=== PATIENT | male | born 1950 | race Caucasian/White ===

== ENCOUNTER 2019-04-04 21:58 | Inpatient (IN) | payer MEDICARE, BC ==
[~2019-04-04] VITALS: Ht 177.8 cm; Wt 135.9 kg
[~2019-04-04 21:58] MED LIST: ESCITALOPRAM; LORTAB 5/500 501 TAB PO; NO HOME MEDICATIONS
[2019-04-04 22:38] LABS: BASO % 0.3 % (0.0-2.0); EOS # 0.1 (0.0-0.7); EOS % 0.5 % (0-4.0); GRAN % 80.9 % (42.2-75.2); HEMATOCRIT 43.4 % (42.0-52.0); HEMOGLOBIN 14.4 g/dl (13.5-18.0); LYMPH # 1.5 (1.2-3.4); LYMPH % 10.2 % (20.0-51.0); MEAN CELL VOLUME 88 fl (80.0-100.0); MEAN CORPUSCULAR HEMOGLOBIN 29 pg (27.0-31.0); MEAN CORPUSCULAR HGB CONC 33 g/dl (33.0-37.0); MEAN PLATELET VOLUME 9.5 fl (7.4-10.4); MONO # 1.1 (0.1-0.6); MONO % 7.3 % (1.7-9.3); PLATELET COUNT 231 K/mm3 (130-400); RED BLOOD COUNT 4.91 M/mm3 (4.20-5.60); REDCELL DISTRIBUTION WIDTH-CV 14.1 % (11.5-14.5)
[2019-04-04 22:49] LABS: ALBUMIN 3.8 gm/dL (3.5-5.0); BILIRUBIN,TOTAL 0.9 mg/dL (0.0-1.0); C-REACTIVE PROTEIN 8.5 mg/dL (0.0-0.9); CALCIUM 9.2 mg/dL (8.4-10.2); CREATININE, serum 1.72 (0.66-1.25); MAGNESIUM 1.9 mg/dL (1.6-2.3); PHOSPHOROUS 4.1 mg/dL (2.5-4.5); POTASSIUM 3.9 mmol/L (3.4-5.0); TOTAL PROTEIN 6.8 gm/dL (6.4-8.2)
[2019-04-04 22:59] LABS: TROPONIN-I 0.202 ng/mL (0.000-0.035)
--- NOTE | 2019-04-04 23:30 | NUR ---
Report received from Jamie LOPEZ in ED.
[2019-04-04] MEDS ORDERED: PRINIVIL10 MG PO (23:37)
[2019-04-04] MEDS ORDERED: ZYLOPRIM 100MG100 MG PO (23:37)
--- NOTE | 2019-04-04 23:45 | NUR ---
Pt arrived via stretcher from ED to ICU07. Pts life partner in waiting room at this time. Pt is pleasant and cooperative at this time. Agreed to transfer with X2 staff assist to ICU bed from stretcher with steady gait. Pt refused to take off shorts under hospital gown. Assessment completed at this time. Life partner name is Gaby, 4 digit passcode provided.
[2019-04-05] VITALS (584 sets, daily range): BP systolic 84–139; BP diastolic 56–95; PULSE 82–112; TEMP 97.6–99.4; O2SAT 74–100
--- NOTE | 2019-04-05 | NUR ---
Significant other reported to this nurse that prior to blood administration earlier in the day the recorded BP was 118/74. Gaby stated that the ER provider had requested this information. A new insurance card was also reported, and family member was directed to the ED admissions desk so the proper placement of information could be obtained.
[2019-04-05] MEDS ORDERED: ALEVE 220MG220 MG PO (00:59)
[2019-04-05 03:12] LABS: PARTIAL THROMBOPLASTIN TIME 26.7 SECONDS (26.0-37.0)
[2019-04-05 05:32] LABS: CALCIUM 8.9 mg/dL (8.4-10.2); CHOLESTEROL RISK RATIO 3.1; CREATININE, serum 1.78 (0.66-1.25); POTASSIUM 4.4 mmol/L (3.4-5.0)
[2019-04-05 05:49] LABS: TROPONIN-I 6 HR POST INITIAL 1.12 ng/mL (0.000-0.034)
--- NOTE | 2019-04-05 07:30 | NUR ---
Bedside report provided to Gail LOPEZ. Pt resting in bed at this time and significant other sitting at bedside. Both were active in report and timeline of occurances prior to admission as well as asking questions about morning lab results.
--- NOTE | 2019-04-05 07:42 | NUR ---
Report received from Dodie LOPEZ and care resumed.
--- NOTE | 2019-04-05 08:30 | NUR ---
Dr Munoz in to see pt.
--- NOTE | 2019-04-05 09:35 | NUR ---
Dr Vidal in to see pt.
--- NOTE | 2019-04-05 10:04 | NUR ---
Initial visit; Patient thanked Manager Pipeline for looking in on him and wishing him well and offering him God's blessings.
[2019-04-05 11:27] LABS: COLLECTION METHOD CLEAN CATCH
[2019-04-05 11:40] LABS: MUCOUS Present /lpf; PH 5 (5-8); SQUAMOUS EPITHELIAL 0-2 /hpf; URINE APPEARANCE Hazy; URINE BACTERIA Rare /hpf; URINE BILIRUBIN Negative (NEGATIVE); URINE BLOOD Negative (NEGATIVE); URINE COLOR Amber; URINE GLUCOSE Negative (NEGATIVE); URINE KETONE Trace (NEGATIVE); URINE LEUKOCYTE ESTERASE Negative (NEGATIVE); URINE NITRATE Negative (NEGATIVE); URINE PROTEIN(semi-quant) 1+ (NEGATIVE); URINE RBC 0-2 /hpf; URINE WBC 0-2 /hpf
--- NOTE | 2019-04-05 12:00 | NUR ---
Pt to sugar laboratory assistant at this time.
--- NOTE | 2019-04-05 12:12 | NUR ---
SEE MERGE REPORT FOR MEDICATION ADMINISTRATION TIMES WELL INTRA/POST SEDATION ASSESSMENTS.
--- NOTE | 2019-04-05 13:15 | NUR ---
Right groin dressing in place, gauze/tegaderm/, C/D/I.
--- NOTE | 2019-04-05 13:30 | NUR ---
Right groin dressing in place, gauze with tegaderm, C/D/I
--- NOTE | 2019-04-05 13:36 | NUR ---
GEORGI Cedillo with hospitalist called regarding cath results and updated plan of care. Will plan to transfer pt to medical floor.
--- NOTE | 2019-04-05 13:48 | NUR ---
Dressing in place to right groin, gauze and tegaderm, dressing C/D/I.
--- NOTE | 2019-04-05 14:00 | NUR ---
Right groin dressing in place, gauze and tegaderm. Dressing C/D/I/
--- NOTE | 2019-04-05 14:28 | NUR ---
SW attended clinical rounding and met with patient to discuss discharge planning. 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 His pcp is Dr Short and he obtains his medications from [facility]. SW will continue to follow to assist in any discharge needs however none are anticipated.
--- NOTE | 2019-04-05 14:30 | NUR ---
Gauze/tegaderm dressing to right groin site C/D/I.
--- NOTE | 2019-04-05 15:00 | NUR ---
Gauze/tegaderm dressing to right groin C/D/I.
--- NOTE | 2019-04-05 15:30 | NUR ---
Dressing to right groin C/D/I
--- NOTE | 2019-04-05 16:00 | NUR ---
Dressing to right groin C/D/I
[2019-04-05 16:02] LABS: CREATININE, serum 1.87 (0.66-1.25)
[2019-04-05 16:14] LABS: FRACTIONAL EXCRETION OF NA+ 0.58 %
[2019-04-05 16:56] LABS: CREATININE, serum 1.87 (0.66-1.25); POTASSIUM 4.5 mmol/L (3.4-5.0)
--- NOTE | 2019-04-05 17:00 | NUR ---
Dressing to right groin c/d/i.
--- NOTE | 2019-04-05 17:48 | NUR ---
Report called to Jaelyn LOPEZ. Pt to transfer to 319 per wheelchair with tele.
--- NOTE | 2019-04-05 18:00 | NUR ---
Pt arrives to medical unit rm 319 from ICU via WC accompanied by JOHN Reynolds. Pt reports pain in right knee still pretty high, 8 out of 10 on pain scale. IVF's infusing per orders through right hand site without s/s of complications. Right groin incision site with dressing CDI. Bandaid over right wrist site. Urinal and Ice water provided to pt.
--- NOTE | 2019-04-05 18:23 | NUR ---
Pt taken to room 319 by wheelchair. Bedside update given to Jaelyn LOPEZ.
--- NOTE | 2019-04-05 19:45 | NUR ---
pt resting in bed A+OX4. reports no pain. radial site DCI. right femoral dressing DCI. reports no dizziness. tele on. lungs clear x4. bowel sounds audible x4. tele on- NSR shown. neuro checks unchanged and insignificant. New IV placed to the right forearm- flushes well,no redness, no swelling. right hand IV dc'd- catheter tip intact. no needs at this time. call light in reach
[2019-04-06] VITALS (7 sets, daily range): BP systolic 112–152; BP diastolic 60–85; PULSE 81–94; TEMP 97.7–99.5
--- NOTE | 2019-04-06 05:24 | NUR ---
pt had an uneventful night. reports right knee pain- prn pain meds given. radial site DCI. right femoral site DCI. IV started to the right forearm- flushes well, no redness, no swelling. no needs at this time. call light in reach
--- NOTE | 2019-04-06 06:35 | NUR ---
resting in bed, bedside shift report received from JOHN Ribera
--- NOTE | 2019-04-06 07:25 | NUR ---
report given to JOHN Trujillo. pt reports no needs at this time.
[2019-04-06 08:16] LABS: HEMATOCRIT 38.7 % (42.0-52.0); HEMOGLOBIN 12.9 g/dl (13.5-18.0); MEAN CELL VOLUME 89 fl (80.0-100.0); MEAN CORPUSCULAR HEMOGLOBIN 30 pg (27.0-31.0); MEAN CORPUSCULAR HGB CONC 33 g/dl (33.0-37.0); PLATELET COUNT 221 K/mm3 (130-400); RED BLOOD COUNT 4.37 M/mm3 (4.20-5.60)
[2019-04-06 08:20] LABS: CALCIUM 8.7 mg/dL (8.4-10.2); CREATININE, serum 1.74 (0.66-1.25); POTASSIUM 4.3 mmol/L (3.4-5.0)
--- NOTE | 2019-04-06 08:25 | NUR ---
sitting up on side of bed, denies needs at this time, anxious to go home
[2019-04-06 08:48] LABS: BAND 2 % (0-10); LYMPHOCYTE 13 % (20.0-51.0); NEUTROPHILS 75 % (42.0-75.2); PLATELET ESTIMATE NORMAL (NORMAL)
--- NOTE | 2019-04-06 09:12 | NUR ---
resting in bed at this time, denies needs
--- NOTE | 2019-04-06 09:23 | NUR ---
physical therapy in to work with patient, in to visit and they are asking about the results of the the test that have been completed, explained that the Dr will make rounds hopefully in the next hour and they will review that with them
--- NOTE | 2019-04-06 09:43 | NUR ---
ambulating in flores with physical therapy, c/o pain to knee and 2 therapists assisting
--- NOTE | 2019-04-06 10:06 | NUR ---
Dr Suazo and care team in to see patient
--- NOTE | 2019-04-06 10:20 | NUR ---
Dr Madden notified of consult
--- NOTE | 2019-04-06 10:27 | NUR ---
remains up in chair, full assessment completed, see interventions for further info
--- NOTE | 2019-04-06 11:23 | NUR ---
SW attended clinical rounds to discuss discharge plan. Patient will require a front wheeled walker for discharge. Patient was presented DME [employer] options. Patient signed choice form for [facility]. SW faxed FWW order to [facility]. No additional needs at this time.
--- NOTE | 2019-04-06 11:39 | NUR ---
resting in chair denies needs
[2019-04-06 13:08] LABS: IRON,SERUM 14 ug/dL (35-150)
--- NOTE | 2019-04-06 13:10 | NUR ---
sitting up on bench seat, visiting with a friend
[2019-04-06 13:17] LABS: TOTAL IRON BINDING CAPACITY 297 ug/dL (261-462)
--- NOTE | 2019-04-06 13:30 | NUR ---
to radiology per WC for CT scan
[2019-04-06 13:45] LABS: FERRITIN 106 ng/mL (18-464)
--- NOTE | 2019-04-06 15:08 | NUR ---
Follow-up visit; Patient thanked for stopping by. He stated he is going to undergo another test or so this afternoon and will see what they find out. will continue to look in on Mikhail.
--- NOTE | 2019-04-06 15:18 | NUR ---
remains up in recliner
--- NOTE | 2019-04-06 16:00 | NUR ---
resting in chair, informed him that the nurse practitioner has called and said he has a kidney stone and that Dr Brown has been consulted
--- NOTE | 2019-04-06 17:02 | NUR ---
bedside shift report given to JOHN Land
[2019-04-06 17:26] LABS: URINE PROTEIN:CREAT RATIO 0.06 (0.00-0.14)
--- NOTE | 2019-04-06 19:45 | NUR ---
PT RESTING IN BED A+OX4. REPORTS MINIMAL PAIN. NORCO RELIEVED FLANK PAIN. NPO AT MIDNIGHT. VSS. RIGHT IV FLUSHES WELL, NO REDNESS, NO SWELLING. NO SOA. VSS. ON ROOM AIR. LUNGS CLEAR. BOWEL SOUNDS HEARD THROUGHOUT. TELE ON. NO NEEDS AT THIS TIME. CALL LIGHT IN REACH
[2019-04-07] VITALS (310 sets, daily range): BP systolic 119–140; BP diastolic 64–90; PULSE 72–159; TEMP 97.5–99.3; O2SAT 77–100
--- NOTE | 2019-04-07 07:29 | NUR ---
PT HAD AN UNEVENTFUL NIGHT. REPORTED SOME FLANK PAIN BUT DENIES PAIN MEDS. IV FLUSHES WELL, NO REDNESS, NO SWELLING. CONSENT PRINTED AND ON CHART. LUNGS CLEAR X4. BOWEL SOUNDS AUDIBLE. HEART RRR. NO NEEDS AT THIS TIME. REPORT GIVEN TO JOHN ROBERTSON
[2019-04-07 08:06] LABS: BASO % 0.5 % (0.0-2.0); EOS # 0.1 (0.0-0.7); GRAN # 6.5 (1.4-6.5); HEMATOCRIT 38.9 % (42.0-52.0); LYMPH # 1.2 (1.2-3.4); LYMPH % 13.5 % (20.0-51.0); MEAN CELL VOLUME 88 fl (80.0-100.0); MEAN CORPUSCULAR HEMOGLOBIN 29 pg (27.0-31.0); MEAN CORPUSCULAR HGB CONC 33 g/dl (33.0-37.0); MEAN PLATELET VOLUME 9.9 fl (7.4-10.4); MONO % 11.4 % (1.7-9.3); PLATELET COUNT 222 K/mm3 (130-400); RED BLOOD COUNT 4.42 M/mm3 (4.20-5.60)
[2019-04-07 08:25] LABS: CALCIUM 8.8 mg/dL (8.4-10.2); CREATININE, serum 1.56 (0.66-1.25); POTASSIUM 4.2 mmol/L (3.4-5.0)
--- NOTE | 2019-04-07 08:31 | NUR ---
Assessment completed, alert/oriented, vital signs stable, left sided flank pain present but manageable/ denies needs for intervention, patient scheduled for surgery with to removed left kindey stone and place ureteral stent, consent signed and sscheudled for around 0900, he has been NPO, nephrology following for RAPHAEL/ CKD, heart RRR, lungs CTA, patient denies other needs at this time
--- NOTE | 2019-04-07 10:06 | NUR ---
patient is going to OR for ureterosocpy/ stone removal
--- NOTE | 2019-04-07 11:13 | NUR ---
Patient was presented IM and provided a copy. [facility] will deliver the walker today for discharge. Patient will likely discharge later today.
--- NOTE | 2019-04-07 12:48 | NUR ---
Patient arrived back to room 319 from PACU at this time, he is drowsy but oriented, vital signs stable, pain conrolled at this time
--- NOTE | 2019-04-07 14:20 | NUR ---
patient heart rate tachy / irregular, obtained EKG and showed A.fib RVR, hospitalist notified Cardiology who wants him on an Amiodraone gtt, I have called household refrigerator mechanic for ICU bed
--- NOTE | 2019-04-07 14:50 | NUR ---
PATIENT BROUGHT TO ICU UNIT AT 1450 BY JOHN ROBERTSON. ASSESSMENT OF PATIENT COMPLETED, MED-REC COMPLETE, VITALS TAKEN: TEMPERATURE 97.8 ORALLY, BP 156/73 LEFT ARM SUPINE, HR 159, RESPIRATIONS 14, SpO2 100% ON 2L OF O2 VIA NC. PATIENT DENIES ANY SYMPTOMS R/T A-FIB C RVR. WILL CONTINUE TO MONITOR.
--- NOTE | 2019-04-07 15:00 | NUR ---
PATIENT ASSESSED, VITALS TAKEN. HEART RATE NOTED TO BE A-FIB WITH RVR, HR 150'S. PATIENT DENIES ANY SYMPTOMS RELATED TO A-FIB. PATIENT QUESTIONS AND CONCERNS ANSWERED AND ADDRESSED. ORIENTED TO ICU ROOM AND ENCOURGAGED TO ASK QUESTIONS.
--- NOTE | 2019-04-07 15:05 | NUR ---
Patient being transferred to ICU for A.fib/RVR to initiate Amiodarone gtt, I have given report to recieving nurse Rosales,RN / Otoniel,RN, I have discussed plan of care with patient and he verbalized understanding, I transferred him to room ICU#8 by wheelchair
--- NOTE | 2019-04-07 15:37 | NUR ---
AMIODARONE DRIP STARTED PER ORDERS FROM DR. DIAZ. BOLUS ADMINISTERED OVER 1 HOUR. DRIP TO REMAIN AT 1MG/MIN WITH NO TITRATION PER ORDERS FROM DR. DIAZ
[2019-04-07 15:41] LABS: CALCIUM 8.8 mg/dL (8.4-10.2); CREATININE, serum 1.53 (0.66-1.25); POTASSIUM 4.5 mmol/L (3.4-5.0)
[2019-04-07 16:11] LABS: TSH w REFLEX 1.18 uIU/mL (0.465-4.680)
--- NOTE | 2019-04-07 17:01 | NUR ---
Pt converted to sinus rhythm in 70s. Dr. Renee notified of conversion. After EKG confirmation of rhythm change, Amiodarone gtt can be stopped.
--- NOTE | 2019-04-07 17:30 | NUR ---
PATIENT CARDIOVERTED TO NORMAL SINUS RHYTHM, CONFIRMED WITH EKG. ORDERS FROM DR. DIAZ TO DISCONTINUE AMIODERONE.
--- NOTE | 2019-04-07 19:10 | NUR ---
Bedside report received from Antonina. Pt resting in bed at this time interacting in report. Dinner tray is in front of pt at this time.
[2019-04-08] VITALS (339 sets, daily range): BP systolic 133–164; BP diastolic 69–89; PULSE 59–78; TEMP 97.4–98.1; O2SAT 68–100
[2019-04-08 06:14] LABS: EOS % 0.1 % (0-4.0); GRAN # 9.7 (1.4-6.5); GRAN % 86.1 % (42.2-75.2); HEMOGLOBIN 12.2 g/dl (13.5-18.0); LYMPH # 0.7 (1.2-3.4); LYMPH % 5.8 % (20.0-51.0); MEAN CELL VOLUME 88 fl (80.0-100.0); MEAN CORPUSCULAR HEMOGLOBIN 30 pg (27.0-31.0); MEAN CORPUSCULAR HGB CONC 34 g/dl (33.0-37.0); MEAN PLATELET VOLUME 9.6 fl (7.4-10.4); MONO # 0.9 (0.1-0.6); MONO % 7.6 % (1.7-9.3); PLATELET COUNT 224 K/mm3 (130-400); RED BLOOD COUNT 4.12 M/mm3 (4.20-5.60); REDCELL DISTRIBUTION WIDTH-CV 13.9 % (11.5-14.5)
[2019-04-08 06:15] LABS: HEMATOCRIT 36.4 % (42.0-52.0)
[2019-04-08 06:24] LABS: CALCIUM 8.7 mg/dL (8.4-10.2); CREATININE, serum 1.77 (0.66-1.25); POTASSIUM 4.6 mmol/L (3.4-5.0)
--- NOTE | 2019-04-08 07:25 | NUR ---
Report provided to Hira LOPEZ. Pt resting in bed at this time.
--- NOTE | 2019-04-08 08:00 | NUR ---
PATIENT ASSESSED. QUESTIONS AND CONCERNS ADDRESSED. WILL CONTINUE TO MONITOR.
[2019-04-08] MEDS ORDERED: ASPIRIN E.C. 8181 MG PO ×2 (15:04)
[2019-04-08] MEDS ORDERED: TOPROL XL 25MG25 MG PO ×2 (15:04)
--- NOTE | 2019-04-08 16:41 | NUR ---
PATIENT DISCHARGED FROM UNIT AT 1641. REVIEWED DISCHARGE INSTRUCTIONS, PAPERWORK SIGNED, QUESTIONS AND CONCERNS ADDRESSED, FOLLOW UP CARE REVIEWED. LEFT UNIT VIA WHEELCHAIR ESCORTED BY THIS RN.
== END 2019-04-08 16:41 | disposition home or self-care (01) | DRG 659 ==
LOC: COL.ER 21:58 → ICU 23:12 → MEDICAL 23:12 → ICU 04-07 14:27
PROVIDERS: Emergency Medicine; Internal Medicine Cardiovascular Disease; Nurse Practitioner; Nurse Practitioner Family; Physician Assistant; Urology; ADMIT Hospitalist
PROC: 4A023N8 Measurement of Cardiac Sampling and Pressure, Bilateral, Percutaneous Approach (ICD-10-PCS; principal; 2019-04-05)
PROC: B2111ZZ Fluoroscopy of Multiple Coronary Arteries using Low Osmolar Contrast (ICD-10-PCS; 2019-04-05)
PROC: B2151ZZ Fluoroscopy of Left Heart using Low Osmolar Contrast (ICD-10-PCS; 2019-04-05)
PROC: 0T778DZ Dilation of Left Ureter with Intraluminal Device, Via Natural or Artificial Opening Endoscopic (ICD-10-PCS; 2019-04-07 11:30)
PROC: 0TC78ZZ Extirpation of Matter from Left Ureter, Via Natural or Artificial Opening Endoscopic (ICD-10-PCS; 2019-04-07 11:30)
DX: N13.2 Hydronephrosis with renal and ureteral calculous obstruction (principal); I21.4 Non-ST elevation (NSTEMI) myocardial infarction; Z68.41 Body mass index [BMI] 40.0-44.9, adult; R74.8 Abnormal levels of other serum enzymes; E78.5 Hyperlipidemia, unspecified; H81.10 Benign paroxysmal vertigo, unspecified ear; I25.10 Atherosclerotic heart disease of native coronary artery without angina pectoris; I13.10 Hypertensive heart and chronic kidney disease without heart failure, with stage 1 through stage 4 chronic kidney disease, or unspecified chronic kidney disease; E66.9 Obesity, unspecified; N18.3 Chronic kidney disease, stage 3 (moderate); I48.91 Unspecified atrial fibrillation
CPT/HCPCS: OP; 99222-AI; 99233-AI; 99239; C1769; C1894; C2617; J0282; J0690; J1100; J1644; J1885; J2060; J2250; J2370; J2405; J2550; J2704; J3010; J7030; J7060; Q9967

== ENCOUNTER 2020-08-22 07:41 | Inpatient (IN) | payer MEDICARE, BC ==
[~2020-08-22] VITALS: Ht 172.7 cm; Wt 114.6 kg
[~2020-08-22 07:41] MED LIST changes: +ALEVE 220MG220 MG PO; +ASPIRIN E.C. 8181 MG PO; +PRINIVIL10 MG PO; +TOPROL XL 25MG25 MG PO; +ZYLOPRIM 100MG100 MG PO
[2020-08-22 09:24] LABS: HEMOGLOBIN 12.3 g/dl (13.5-18.0); MEAN CELL VOLUME 92 fl (80.0-100.0); MEAN CORPUSCULAR HEMOGLOBIN 31 pg (27.0-31.0); MEAN CORPUSCULAR HGB CONC 34 g/dl (33.0-37.0); MEAN PLATELET VOLUME 9.5 fl (7.4-10.4); PLATELET COUNT 282 K/mm3 (130-400); RED BLOOD COUNT 3.92 M/mm3 (4.20-5.60); REDCELL DISTRIBUTION WIDTH-CV 13.7 % (11.5-14.5)
[2020-08-22 09:30] LABS: ALBUMIN 3.6 gm/dL (3.5-5.0); BILIRUBIN,TOTAL 2.2 mg/dL (0.0-1.0); CALCIUM 8.9 mg/dL (8.4-10.2); CREATININE, serum 0.73 (0.66-1.25); POTASSIUM 3.7 mmol/L (3.4-5.0); TOTAL PROTEIN 6.3 gm/dL (6.4-8.2)
[2020-08-22 09:34] LABS: HEMATOCRIT 36.1 % (42.0-52.0)
[2020-08-22 09:38] LABS: INR 1.4 (0.8-3.0); PROTHROMBIN TIME 15.8 SECONDS (9.7-12.8)
[2020-08-22 09:49] LABS: TROPONIN-I 0.059 ng/mL (0.000-0.035)
[2020-08-22 09:57] LABS: LYMPHOCYTE 9 % (20.0-51.0); NEUTROPHILS 79 % (42.0-75.2); PLATELET ESTIMATE NORMAL (NORMAL)
[2020-08-22 11:51] LABS: COLLECTION METHOD CLEAN CATCH
[2020-08-22 11:59] LABS: PH 7 (5-8); SQUAMOUS EPITHELIAL None Seen /hpf; URINE APPEARANCE Clear; URINE BACTERIA None Seen /hpf; URINE BILIRUBIN Negative (NEGATIVE); URINE BLOOD Negative (NEGATIVE); URINE COLOR Yellow; URINE GLUCOSE Negative (NEGATIVE); URINE KETONE 1+ (NEGATIVE); URINE LEUKOCYTE ESTERASE Negative (NEGATIVE); URINE NITRATE Negative (NEGATIVE); URINE PROTEIN(semi-quant) Negative (NEGATIVE); URINE RBC 0-2 /hpf; URINE UROBILINOGEN >=4.0 mg/dL (NEGATIVE)
[2020-08-22] MEDS ORDERED: NORCO 325 MG-7.1 TAB PO (16:10)
[2020-08-22] MEDS ORDERED: ZYLOPRIM 100MG100 MG PO (16:10)
[2020-08-22] MEDS ORDERED: LASIX 20MG TABL20 MG PO (16:10)
[2020-08-22] MEDS ORDERED: TOPROL XL 50MG50 MG PO (16:11)
[2020-08-22 17:15] VITALS: BP 147/74; PULSE 79; TEMP 98.8
[2020-08-22 17:26] LABS: TROPONIN-I 3 HR POST INITIAL 0.05 ng/mL (0.000-0.034)
[2020-08-22] MEDS ORDERED: SENEXON-S 50-81 EACH PO (17:56)
--- NOTE | 2020-08-22 19:28 | NUR ---
PT BROUGHT TO ROOM 345 BY FUSE CUP EXPANDER FROM ED. THIS NURSE HELPED TRANSFER WITH THE FUSE CUP EXPANDER TO BED. AN EXTENSIVE TWO ASSIST FOR PIVOT TRANSFER. PT WAS ORIENTED TO THE ROOM. MED REC DONE AND ASSESS DONE. ICE THERAPY UTILIZED TO LEFT KNEE. PT DENIES PAIN AT THIS TIME. AWAITING PLACEMENT IN REHAB FACILITY.
[2020-08-22 19:43] VITALS: BP 125/53; PULSE 91; TEMP 98.9
[2020-08-22 20:08] VITALS: BP 125/53; PULSE 91; TEMP 98.9
[2020-08-22 23:44] VITALS: BP 121/51; PULSE 65; TEMP 98
[2020-08-23 03:36] VITALS: BP 124/65; PULSE 67; TEMP 99.3
[2020-08-23 08:11] VITALS: BP 95/64; PULSE 82; TEMP 98.5
--- NOTE | 2020-08-23 08:57 | NUR ---
(late entry 08/22) Sap Administrator consulted to the ED for the patient. The patient had hip surgery 6 weeks ago at the surgical center. In the last 36 hours he fell twice onto his knees. He may need placement or home with home health and extra assistance from aides. BECKY informed the patient's life partner, Maurisio and the patient that it would likely be private pay to go to a facility for post acute rehab. They were agreeable to private pay. PT consulted. BECKY faxed referrals to [facility], [facility], [facility], [facility], [facility], [facility], [facility], [facility], and [facility]. BECKY faxed referral to Gem at [facility]. The patient is being admitted obs status. [facility] is not currently accepting patients. [facility] is currently not accepting patients. [facility] could not accept at this time but will assess the patient again. [facility] has not accepted but does not not have male beds but may have male beds on Thursday 08/23 or Friday 08/24. BECKY collaborated the above information with the ED team and surgical floor Sap Administrator.
[2020-08-23 09:42] VITALS: BP 181/101; PULSE 102
[2020-08-23 09:45] LABS: CALCIUM 8.9 mg/dL (8.4-10.2); CREATININE, serum 0.78 (0.66-1.25); GRAN # 7.4 (1.4-6.5); GRAN % 81.9 % (42.2-75.2); HEMOGLOBIN 11.3 g/dl (13.5-18.0); LYMPH # 0.6 (1.2-3.4); LYMPH % 7.1 % (20.0-51.0); MEAN CELL VOLUME 92 fl (80.0-100.0); MEAN CORPUSCULAR HEMOGLOBIN 30 pg (27.0-31.0); MEAN CORPUSCULAR HGB CONC 33 g/dl (33.0-37.0); MONO % 10.6 % (1.7-9.3); PLATELET COUNT 272 K/mm3 (130-400); RED BLOOD COUNT 3.76 M/mm3 (4.20-5.60); REDCELL DISTRIBUTION WIDTH-CV 13.4 % (11.5-14.5)
[2020-08-23 09:58] LABS: HEMATOCRIT 34.7 % (42.0-52.0)
[2020-08-23 12:11] VITALS: BP 123/57; PULSE 68; TEMP 98.3
--- NOTE | 2020-08-23 13:00 | NUR ---
Hospitaslist have rounded & seen patient. Patient not a candidate for MRI due to recent Hip surgery. Hosptistaist made aware & Ct ordered. Patient not given daily dose of Toprol due to low Bp. Other home meds given. Patient pulled out IV this nurse unsuccessful in restart. cloth mercerizing supervisor notified.
--- NOTE | 2020-08-23 13:03 | NUR ---
Patient sitting up in chair. He tolerated lunch. Aiv to be notifed for IV start, housekeeper child care also unsuccessful. Patient denies the need for pain medication. New linens applied to bed.
--- NOTE | 2020-08-23 14:49 | NUR ---
Cassandra started Iv to Right hand. Patient resting in bed. Social work assisting in discharge plans
[2020-08-23 15:50] VITALS: BP 137/59; PULSE 78; TEMP 98.6
--- NOTE | 2020-08-23 15:57 | NUR ---
Patient up and ambulated the halls. With walker & gaitbelt steady gait. he did well. Patient assisted to wipe down his backside & all skin intact. New yellow goen on, but he wanted to keep all his underclothing on.
--- NOTE | 2020-08-23 17:03 | NUR ---
Motorcycle Riding Instructor contacted Evan at [facility] who advised they do not have male beds available. [facility], [facility], [facility] were unable to accept referral. Andrew at [facility] advised they are still reviewing referral. BECKY spoke with Eugenie at [facility] who advised they were likely able to accept patient and could possibly take today. BECKY contacted patient's life partner, Maurisio to provide update. Muarisio verbalized frustration and stated patient was not going to [facility] and was not going to [facility]. Maurisio stated patient was not going to some, small custodial like [facility], which probably has COVID. Maurisio also stated patient would not go to [facility] due to their ratings. Maurisio wants patient to go to [facility] the [facility]. BECKY contacted [facility] who states she spoke with Maurisio and advised her they could not take admissions at this time. BECKY met with patient with Maurisio on speakerphone. Patient states he is going home and will be dismissed tomorrow. BECKY made sure to advise patient that going home was not PT/OT's recommendation and patient verbalized understanding. Maurisio is agreeable to patient coming home but tells patient she has conditions he will have to comply with. Maurisio tells patient that if he does not do what he is supposed to do at home, his only options would be [facility]. Patient states [facility] is not an option and he is going home. Maurisio tells patient that they will need a hospital bed, wheelchair, and bedside commode. Maurisio also states they will need home health and private duty services. Maurisio understands that the hospital bed and private duty services are private pay and is agreeable to this. Patient expressed some frustration with this and felt some of this was not necessary, however patient states he will be agreeable to whatever he needs to so he can go back home. BECKY coordinated with Aida at [facility] and faxed over referral and orders for hospital bed, wheelchair, and bedside commode. Aida advised they have all of this in stock and Maurisio will need to pay upfront. BECKY then faxed referral to Gem at [facility]. BECKY spoke with Gem who states she has been in contact with Maurisio and they will start services tomorrow upon discharge. Gem states they will provide PT/OT/Nursing as well as private duty services, twice a day for four hours each visit. BECKY contacted Maurisio to provide update. Maurisio states she will call Aida at [facility] to provide payment. Maurisio then states to BECKY that if patient gets home and doesn't do what he is supposed to do, patient is going to be SW's responsibility. BECKY contacted Aida at [facility] who advised she spoke with Maurisio and payment was received. DME to be delivered to patient's home tomorrow at 1000. BECKY to fax discharge orders to [facility] tomorrow.
--- NOTE | 2020-08-23 19:43 | NUR ---
rounded. No new orders, but reccommendations written on chart. Patient ambulated halls with walker, steady on his feet. High fall risk followed. Bedside report to Shilpi.
--- NOTE | 2020-08-23 19:54 | NUR ---
Received report from JOHN Kramer. Pt was helped with getting settled in bed. Pt has his call light within reach.He has no other request at this time.
[2020-08-23 20:59] VITALS: BP 129/50; PULSE 64; TEMP 98.3
--- NOTE | 2020-08-24 00:01 | NUR ---
Was contacted by tele due to pt heart rate in the 160's. Dr. Temple was contacted at this time. He wanted pt to have an EKG and Cardizem 5mg push at this time. Pt EKG was done and was notified from respirtory therapy that pt is AFib RVR. Pt vitals are currently 119/63 and pt heart rate is 142 and pt O2 is at 96% on room air. Pt stated that he feels fine. Myself and medical housekeeper are at pt bedside and pt was just given medication IV. Pt will be closesly monitored.
--- NOTE | 2020-08-24 00:05 | NUR ---
Pt blood pressure is currently 109/59 and his heart rate is currently from the 130's up to the 170. Still at pt bedside with monitor. Pt states that he still feels ok. Pt oxygen is currently at 97% on room air.
--- NOTE | 2020-08-24 00:12 | NUR ---
Pt blood pressure currently at 120/59 and his O2 is currently at 95% on room air. Heart rate currently ranging from 140's to 160's. Pt lying in bed awake and states that he feels fine.
--- NOTE | 2020-08-24 00:18 | NUR ---
Pt blood pressure is currently 123/67 and his O2 is currently at 94% on room air. Pt stated that he still feels fine. Pt heart rate is currently ranging from 130's to the 150's. Still at pt bedside and will continue to monitor. Pt stated that he has no pain at this time.
[2020-08-24 00:22] VITALS: BP 113/86; PULSE 151; TEMP 98.7
--- NOTE | 2020-08-24 00:28 | NUR ---
Pt heart rate had no change. Dr. Temple was contacted and given an update on pt status. Dr. Temple ordered 10 mg of Cardizem as a now dose. Medication is currently being given. Myself and dry house wheeler is at pt bedside and monitoring pt. Pt stated that he still feels fine. Will continue to monitor pt. His current blood pressure is 119/62 and his O2 is 97% on room air.
--- NOTE | 2020-08-24 00:34 | NUR ---
Pt currently lying in bed resting and stated that he feels fine. Pt blood pressure is currently 111/66 and his O2 is 95% on room air. Pt heart rate is still in the 140's.
--- NOTE | 2020-08-24 00:49 | NUR ---
At pt bedside tried calling Dr. Temple but went to voicemail.
--- NOTE | 2020-08-24 00:51 | NUR ---
Tried calling and no answer. Pt stated that he feels fine pt blood pressure currently 107/56 and his heart rate still has no change.
--- NOTE | 2020-08-24 00:56 | NUR ---
Pt currently resting in bed. ICU charge nurse tried calling Dr. Temple at this time but no answer it went to voicemail. Will continue to try calling.
--- NOTE | 2020-08-24 01:03 | NUR ---
ICU nurse attempted to call Dr. Temple again, no answer went to voicemail. Pt stated that he feels well. His blood pressure is currently 102/69 and his heart rate still has no change. His O2 is at 96% on room air.
--- NOTE | 2020-08-24 01:08 | NUR ---
Pt stated that he feels ok. Pt blood pressure is currently 101/70, pt heart rate is still in the range of the 140's to 150's. Pt O2 is at 94% on room air.
--- NOTE | 2020-08-24 01:26 | NUR ---
Contacted Dr. Vidal and notified him of pt status. He wanted me to put in a cardiology consult which was put in at this time. Dr. Munoz was contacted at 0119 and he was updated on pts status. He wanted pt to have a now dose of digoxin pt was given 0.25 at this time and he wanted this repeated in 4 hours and he wanted a daily dose of 0.125 mg daily starting today. All orders were put in at this time. Will continue to monitor pt and update doctor if needed. Pt stated that he still feels fine. He has his call light within reach. His current blood pressure is 109/84 and his O2 is 94% on room air. His heart rate is currently at 147.
--- NOTE | 2020-08-24 02:18 | NUR ---
was contacted at this time to give an update on the pt status. He just wanted the pt to be monitored and wanted the repeated does given 4 hours from the first dose. Pt is currently resting bed with his call light within reach.
--- NOTE | 2020-08-24 02:46 | NUR ---
Pt is currently resting in bed. There is no change to the pt heart rate, pt did have few seconds where his heart rate went down to the 80's but went back up to the 140's. Pt stated that he feels the same that he doesn't feel any pain. He has his call light within reach.
--- NOTE | 2020-08-24 03:55 | NUR ---
Pt converted back at this time and pt heart rate is currently at 74. Pt stated that he feels ok. Pt vitals were 121/56 and his oxygen level was at 96% on room air. Will continue to monitor pt and update doctor as needed.
[2020-08-24 05:36] VITALS: BP 116/55; PULSE 64; TEMP 98.3
--- NOTE | 2020-08-24 05:41 | NUR ---
Pt digoxin was held at this time. Pt heart rate has been as low as 55. Pt heart rate has been from 55 to 62. Pt is currently resting in bed. Pt vitals were within normal limits. Pt has no request at this time.
[2020-08-24 08:30] VITALS: BP 130/58; PULSE 71; TEMP 98.6
[2020-08-24 09:28] LABS: CALCIUM 8.8 mg/dL (8.4-10.2); CREATININE, serum 0.82 (0.66-1.25); MAGNESIUM 2.1 mg/dL (1.6-2.3); POTASSIUM 3.6 mmol/L (3.4-5.0)
--- NOTE | 2020-08-24 11:32 | NUR ---
Dr Damon here to see patient.
--- NOTE | 2020-08-24 12:24 | NUR ---
Dr Diggs here to see patient.
[2020-08-24 12:57] VITALS: BP 127/46; PULSE 71; TEMP 98.2
[2020-08-24 15:00] VITALS: BP 129/66; PULSE 66; TEMP 98.6
--- NOTE | 2020-08-24 15:56 | NUR ---
SW informed that patient would not be discharging on this date 08/24/20 due to Sotalol initiation, will potentially DC on 08/27/20. SW will continue to follow.
[2020-08-24 16:08] LABS: CK total - for Isoenzymes 179 U/L (39 - 308)
--- NOTE | 2020-08-24 20:00 | NUR ---
Patient resting in bed. Patient has no complaints of pain. Patient voiding in urinal.
[2020-08-24 20:39] VITALS: BP 118/43; PULSE 69; TEMP 98
--- NOTE | 2020-08-24 20:40 | NUR ---
Administered sotalol. Called RT for an EKG in two hours.
--- NOTE | 2020-08-24 22:40 | NUR ---
RT IN ROOM DOING EKG.
[2020-08-25] VITALS (7 sets, daily range): BP systolic 115–154; BP diastolic 47–71; PULSE 55–64; TEMP 97.9–98.7
--- NOTE | 2020-08-25 06:29 | NUR ---
PATIENT SLEEPING. VITALS ARE STABLE. PATIENT DENIES PAIN OR FURTHER NEEDS.
[2020-08-25 06:48] LABS: BASO % 0.2 % (0.0-2.0); EOS # 0.1 (0.0-0.7); EOS % 1.6 % (0-4.0); GRAN # 3.8 (1.4-6.5); HEMOGLOBIN 11.3 g/dl (13.5-18.0); LYMPH # 1.6 (1.2-3.4); LYMPH % 25.4 % (20.0-51.0); MEAN CELL VOLUME 92 fl (80.0-100.0); MEAN CORPUSCULAR HEMOGLOBIN 31 pg (27.0-31.0); MEAN CORPUSCULAR HGB CONC 34 g/dl (33.0-37.0); MEAN PLATELET VOLUME 9.4 fl (7.4-10.4); MONO # 0.7 (0.1-0.6); MONO % 10.6 % (1.7-9.3); PLATELET COUNT 319 K/mm3 (130-400); RED BLOOD COUNT 3.65 M/mm3 (4.20-5.60); REDCELL DISTRIBUTION WIDTH-CV 13.3 % (11.5-14.5)
[2020-08-25 06:55] LABS: HEMATOCRIT 33.5 % (42.0-52.0)
[2020-08-25 06:58] LABS: CALCIUM 8.6 mg/dL (8.4-10.2); CREATININE, serum 0.82 (0.66-1.25); POTASSIUM 3.9 mmol/L (3.4-5.0)
--- NOTE | 2020-08-25 09:20 | NUR ---
Patient alert and oriented, answers questions appropriately. See assessment. Heart tones strong and uneven, pulses palpable. No c/o chest pain or pressure. No other c/o at this time.
--- NOTE | 2020-08-25 20:00 | NUR ---
PT RESTING IN BED. A&O X4. DENIES ANY PAIN. SEE ASSESSMENT. CALL LIGHT IN REACH.
--- NOTE | 2020-08-25 22:46 | NUR ---
RT HERE TO PERFORM EKG 2 HR POST SOTOLOL. TELEMETRY NOTIFIED THIS NURSE REGARDING OCCASIIONAL PVC'S. WHICH HAS BEEN OCCURING.
[2020-08-26 05:02] VITALS: BP 134/70; PULSE 56; TEMP 98.4
--- NOTE | 2020-08-26 06:16 | NUR ---
PT HAS HAD A RESTFUL NIGHT. UNEVENTFUL HS.
[2020-08-26 06:43] LABS: ALBUMIN 2.8 gm/dL (3.5-5.0); BASO % 0.3 % (0.0-2.0); BILIRUBIN,TOTAL 0.7 mg/dL (0.0-1.0); CALCIUM 8.8 mg/dL (8.4-10.2); CREATININE, serum 0.93 (0.66-1.25); EOS # 0.2 (0.0-0.7); EOS % 3.3 % (0-4.0); GRAN # 3.3 (1.4-6.5); GRAN % 53.6 % (42.2-75.2); HEMOGLOBIN 11.7 g/dl (13.5-18.0); LYMPH # 1.9 (1.2-3.4); LYMPH % 31.1 % (20.0-51.0); MAGNESIUM 2.1 mg/dL (1.6-2.3); MEAN CELL VOLUME 94 fl (80.0-100.0); MEAN CORPUSCULAR HEMOGLOBIN 30 pg (27.0-31.0); MEAN CORPUSCULAR HGB CONC 32 g/dl (33.0-37.0); MEAN PLATELET VOLUME 9.8 fl (7.4-10.4); MONO # 0.7 (0.1-0.6); MONO % 11.5 % (1.7-9.3); PLATELET COUNT 349 K/mm3 (130-400); POTASSIUM 4.1 mmol/L (3.4-5.0); RED BLOOD COUNT 3.86 M/mm3 (4.20-5.60); REDCELL DISTRIBUTION WIDTH-CV 13.3 % (11.5-14.5); TOTAL PROTEIN 5.4 gm/dL (6.4-8.2)
[2020-08-26 06:48] LABS: HEMATOCRIT 36.1 % (42.0-52.0)
[2020-08-26 07:39] VITALS: BP 123/48; PULSE 59; TEMP 98.1
[2020-08-26 11:40] VITALS: BP 107/54; PULSE 58; TEMP 97.1
--- NOTE | 2020-08-26 13:20 | NUR ---
Patient up from Endoscopy, ambulated to bed from strecher, steady gait. Fluids continue infusing per orders. Denies pain or further needs at this time.
[2020-08-26 15:43] VITALS: BP 144/60; PULSE 63; TEMP 98.3
--- NOTE | 2020-08-26 16:51 | NUR ---
Debone Processing Supervisor contacted Jamie at [facility] and faxed clinical updates. BECKY advised patient to discharge tomorrow. BECKY collaborated with PT, Fracisco who advised patient will need a front wheeled walker. Patient only has a standard walker he borrowed from a friend. BECKY met with patient then faxed referral and order for walker to [facility]. Patient would like to private pay for the wheelchair rental and have insurance purchase the walker. BECKY contacted Maurisio and provided update. BECKY will continue to follow.
--- NOTE | 2020-08-26 19:13 | NUR ---
Patient has done well throughout the day, minimal needs, independent in room with walker and steady gait. Psych in to see patient this afternoon. Patient denies further needs at this time reported off to night time nanny.
[2020-08-26 19:33] VITALS: BP 115/57; PULSE 64; TEMP 98.4
--- NOTE | 2020-08-26 22:26 | NUR ---
PATIENT RESTING IN BED. COMPLAINED OF SOME ACHINESS IN HIS KNEES SO I GAVE HIM TYLENOL. PATIENT DENIES ANY FURTHER NEEDS AT THIS TIME.
--- NOTE | 2020-08-26 23:10 | NUR ---
RT IN FOR EKG.
[2020-08-27] VITALS: BP 130/48; PULSE 55; TEMP 98.2
[2020-08-27 04:00] VITALS: BP 118/61; PULSE 50; TEMP 98.1
--- NOTE | 2020-08-27 04:00 | NUR ---
PATIENT'S IV CAME OUT. 22G PUT INTO HIS RIGHT FOREARM.
[2020-08-27 06:27] LABS: HEMATOCRIT 39.6 % (42.0-52.0); HEMOGLOBIN 13.1 g/dl (13.5-18.0); MEAN CELL VOLUME 93 fl (80.0-100.0); MEAN CORPUSCULAR HEMOGLOBIN 31 pg (27.0-31.0); MEAN CORPUSCULAR HGB CONC 33 g/dl (33.0-37.0); MEAN PLATELET VOLUME 9.5 fl (7.4-10.4); PLATELET COUNT 399 K/mm3 (130-400); RED BLOOD COUNT 4.27 M/mm3 (4.20-5.60); REDCELL DISTRIBUTION WIDTH-CV 13.2 % (11.5-14.5)
[2020-08-27 06:41] LABS: CALCIUM 9.1 mg/dL (8.4-10.2); POTASSIUM 4.1 mmol/L (3.4-5.0)
[2020-08-27 07:40] VITALS: BP 132/60; PULSE 63; TEMP 98.3
[2020-08-27] MEDS ORDERED: MELATIN 3 MG-11 TAB PO (08:54)
[2020-08-27] MEDS ORDERED: LASIX 40MG TABL40 MG PO (08:54)
[2020-08-27] MEDS ORDERED: BETAPACE 80MG80 MG PO (08:54)
[2020-08-27] MEDS ORDERED: LIPITOR 40MG TA40 MG PO (08:55)
--- NOTE | 2020-08-27 10:17 | NUR ---
Producer Assistant followed up with patient about DME. After collaborating with [facility], patient will have insurance billed for the wheelchair and will purchase the front wheeled walker as the simon of $147. FWW will be delivered today before noon. BECKY contacted Gem at [facility] and faxed discharge orders. Gem will contact patient's life partner, Maurisio to set up first visit. No additional needs at this time.
--- NOTE | 2020-08-27 10:30 | NUR ---
Patient has been doing wellt his am. He is waiting for his walker and than will be discharging. He is getting around the room well with minimal assist and his walker. Denies pain and nausea. No other changes at this time. Call light within reach.
--- NOTE | 2020-08-27 12:30 | NUR ---
Patient is discharging home. His home medications have been returned to him. He packed his belongings up. His walker was delivered. Discharge instructions discussed with patient, no questions verbalized. INT discontinued. Explained his prescriptions have been sent to the pharmacy. Copies of discharge instructions sent with patient. Patient walked out via wheel chair by Gladis ENRIQUEZ.
== END 2020-08-27 12:30 | disposition home health service (06) | DRG 553 ==
LOC: COL.ER 07:41 → SURG 14:30
PROVIDERS: Emergency Medicine; Family Medicine; Physician Assistant; Student in an Organized Health Care Education/Training Program; ADMIT Hospitalist
PROC: 3E0U33Z Introduction of Anti-inflammatory into Joints, Percutaneous Approach (ICD-10-PCS; principal; 2020-08-22)
DX: M17.0 Bilateral primary osteoarthritis of knee (principal); I50.33 Acute on chronic diastolic (congestive) heart failure; I13.0 Hypertensive heart and chronic kidney disease with heart failure and stage 1 through stage 4 chronic kidney disease, or unspecified chronic kidney disease; R44.2 Other hallucinations; Z68.41 Body mass index [BMI] 40.0-44.9, adult; I48.91 Unspecified atrial fibrillation; I25.2 Old myocardial infarction; I25.10 Atherosclerotic heart disease of native coronary artery without angina pectoris; N18.30 Chronic kidney disease, stage 3 unspecified; E78.5 Hyperlipidemia, unspecified; R77.8 Other specified abnormalities of plasma proteins; T40.605A Adverse effect of unspecified narcotics, initial encounter; E66.9 Obesity, unspecified; G47.00 Insomnia, unspecified; K59.00 Constipation, unspecified; Z20.828 Contact with and (suspected) exposure to other viral communicable diseases
CPT/HCPCS: OP; 99232-AI; 99239; G0378; J1160; J1650; J1940; J3301

== ENCOUNTER 2020-11-17 02:06 | Observation (INO) | payer OTHER, BC ==
[~2020-11-17] VITALS: Ht 172.7 cm; Wt 122.0 kg
[~2020-11-17 02:06] MED LIST changes: +BETAPACE 80MG80 MG PO; +LASIX 20MG TABL20 MG PO; +LASIX 40MG TABL40 MG PO; +LIPITOR 40MG TA40 MG PO; +MELATIN 3 MG-11 TAB PO; +NORCO 325 MG-7.1 TAB PO; +SENEXON-S 50-81 EACH PO; +TOPROL XL 50MG50 MG PO
[2020-11-17 02:29] LABS: BASO % 0.3 % (0.0-2.0); EOS # 0.1 (0.0-0.7); EOS % 0.9 % (0-4.0); GRAN # 8.7 (1.4-6.5); GRAN % 80.1 % (42.2-75.2); HEMOGLOBIN 11.4 g/dl (13.5-18.0); LYMPH # 0.7 (1.2-3.4); LYMPH % 6.7 % (20.0-51.0); MEAN CELL VOLUME 91 fl (80.0-100.0); MEAN CORPUSCULAR HEMOGLOBIN 30 pg (27.0-31.0); MEAN CORPUSCULAR HGB CONC 33 g/dl (33.0-37.0); MEAN PLATELET VOLUME 9.2 fl (7.4-10.4); MONO # 1.2 (0.1-0.6); MONO % 11.4 % (1.7-9.3); PLATELET COUNT 305 K/mm3 (130-400); REDCELL DISTRIBUTION WIDTH-CV 14.1 % (11.5-14.5)
[2020-11-17 02:33] LABS: HEMATOCRIT 34.4 % (42.0-52.0)
[2020-11-17 02:45] LABS: ALBUMIN 3.3 gm/dL (3.5-5.0); BILIRUBIN,TOTAL 1.8 mg/dL (0.0-1.0); CALCIUM 8.7 mg/dL (8.4-10.2); CREATININE, serum 0.65 (0.66-1.25); POTASSIUM 3.7 mmol/L (3.4-5.0); TOTAL PROTEIN 6.1 gm/dL (6.4-8.2)
[2020-11-17 02:54] LABS: ERYTHROCYTE SEDIMENTATION RATE 33 mm/hr (0-30)
[2020-11-17 02:55] LABS: C-REACTIVE PROTEIN 17.7 mg/dL (0.0-0.9)
[2020-11-17] MEDS ORDERED: XARELTO10 MG PO (03:22)
[2020-11-17] MEDS ORDERED: VITAMINC1000TA PO (03:23)
[2020-11-17] MEDS ORDERED: ONE DAILY MULTI1 TA1 PO (03:26)
[2020-11-17] MEDS ORDERED: FOLIC ACID 40400 MCG PO (03:27)
--- NOTE | 2020-11-17 06:20 | NUR ---
PT ARRIVES TO ROOM 328 VIA CART FROM ED. IS ALERT AND ORIENTED. SL TO RIGHT AC. LEFT KNEE SWOLLEN AND HOT TO TOUCH, DRSG INTACT. REPORTS RT HIP PAIN WELL LEFT KNEE PAIN.
[2020-11-17 06:26] VITALS: BP 167/67; PULSE 86; TEMP 97.9
[2020-11-17] MEDS ORDERED: ASPIRIN E.C. 8181 MG PO (06:32)
[2020-11-17 07:50] VITALS: BP 139/53; PULSE 77; TEMP 99.1
[2020-11-17 11:07] VITALS: BP 131/68; PULSE 77; TEMP 98.4
--- NOTE | 2020-11-17 11:13 | NUR ---
SW met with patient to complete intake. Patient provides that he lives in [place] with his significant other Maurisio [phone]. Patient provides that he utilizes a walker and generally completes ADL's independently. Patient provides that his PCP is Dr. Melendez, pharmcay is Bruno, and states he is able to afford his medications. Patient states that he is unsure of DPOA-HC documenation. SW called patient's significant other and she provides that she is his DPOA-HC and will bring documenation when she arrives today to visit. Patient states that he plans to return home upon discharge. SW spoke with nurse and nurse states that he will need placement upon DC. SW will continue to follow.
[2020-11-17 15:32] VITALS: BP 155/54; PULSE 79; TEMP 98
[2020-11-17 21:13] VITALS: BP 117/60; PULSE 67; TEMP 98.1
--- NOTE | 2020-11-17 21:15 | NUR ---
PT IN BED, DROWSY. HAS LEFT LEG ON PILLOW, DRSG TO KNEE D/I. HAS ICE PACK TO RIGHT KNEE. BOTH LEGS EDEMATOUS, LEFT MORE THAN RIGHT. SL TO RIGHT AC FLUSHED WELL. HS MEDS INCLUDING TRAMADOL 50MG PO FOR PAIN 02/20. VOIDS 200CC PER URINAL. REFUSES SCDS.
[2020-11-18 00:29] VITALS: BP 132/58; PULSE 71; TEMP 98.8
[2020-11-18 04:00] VITALS: BP 116/55; PULSE 69; TEMP 98.7
--- NOTE | 2020-11-18 04:30 | NUR ---
OFFERED PAIN MEDS TO PATIENT. HE WANTED TO WAIT UNTIL PT SEES HIM TODAY. EMPTIED URINAL AT THIS TIME. REPLACED ICE PACK TO RIGHT KNEE.
[2020-11-18 06:24] LABS: BASO % 0.3 % (0.0-2.0); EOS # 0.1 (0.0-0.7); EOS % 1.5 % (0-4.0); GRAN # 6.3 (1.4-6.5); GRAN % 70.7 % (42.2-75.2); LYMPH # 1.3 (1.2-3.4); LYMPH % 14.6 % (20.0-51.0); MEAN CELL VOLUME 88 fl (80.0-100.0); MEAN CORPUSCULAR HGB CONC 33 g/dl (33.0-37.0); MEAN PLATELET VOLUME 9.3 fl (7.4-10.4); MONO # 1.1 (0.1-0.6); MONO % 12.4 % (1.7-9.3); PLATELET COUNT 289 K/mm3 (130-400); RED BLOOD COUNT 3.44 M/mm3 (4.20-5.60); REDCELL DISTRIBUTION WIDTH-CV 14.1 % (11.5-14.5)
[2020-11-18 06:36] LABS: HEMATOCRIT 30.3 % (42.0-52.0); HEMOGLOBIN 9.9 g/dl (13.5-18.0); MEAN CORPUSCULAR HEMOGLOBIN 29 pg (27.0-31.0)
[2020-11-18 06:37] LABS: CALCIUM 8.6 mg/dL (8.4-10.2); CREATININE, serum 0.77 (0.66-1.25); POTASSIUM 3.4 mmol/L (3.4-5.0)
--- NOTE | 2020-11-18 06:55 | NUR ---
Pt resting in bed. Ice pack to his right knee at this time. Moved ice pack and then pillow off the top of his left knee to observe. Pt hollered out in pain. Asked what was hurting. He stated that any small movement causes his right leg to cramp. Pt verbalized no needs, and stated that he did not want any breakfast.
--- NOTE | 2020-11-18 07:57 | NUR ---
Pt hollering out in pain, stating that his right hip/thigh area keeps cramping. Any slight movement or anything touching his right leg causes it to cramp. He stated that this has happened before, but that it is much worse now. Left knee is not bothering him as much. At rest, no pain, with movement just "a little" pain. Reports he does not want breakfast because he can't move to eat and the pain is too bad.
[2020-11-18 08:33] VITALS: BP 146/66; PULSE 72; TEMP 98.1
--- NOTE | 2020-11-18 10:29 | NUR ---
Initial visit; Patient thanked Paste Worker for looking in on him and offering prayer and God's blessings. Paste Worker will follow up.
[2020-11-18 11:30] VITALS: BP 99/78; PULSE 72; TEMP 98.4
--- NOTE | 2020-11-18 13:00 | NUR ---
Pt did end up getting something to eat, only ate a few bites, reported he just does not have an appetite. Dr Guzman has been in to see patient, new orders received. PRN given for muscle spasms/pain in his right hip. MRI will be coming to get patient soon. No other needs, will continue to monitor
--- NOTE | 2020-11-18 14:25 | NUR ---
[facility] Once in restroom, he was unable to untie his shorts, but then wanted me to pull them down. Asked the patient to try to on his own, he was upset initially but then was able to idependently with no problems. Pt reports that is SO at home helps him with things. I informed him that i would help him with things that he cannot do. Pt did well walking in to the restroom using a walker.
--- NOTE | 2020-11-18 16:41 | NUR ---
Shape Hand met with patient to review discharge plan. SW advised recommendation is for post acute rehab and patient agrees. Patient would like referrals sent to [facility]. SW advised patient that he is observation status and without having three inpatient midnights, he would have to private pay at [facility]. SW also gave referral to Ana at [facility]. SW contacted patient's significant other, Maurisio to provide update. Maurisio verbalized understanding and thought [facility] sounded like a better fit for patient. BECKY also explained to Maurisio that [facility] would likely be private pay as patient is observation status. Maurisio states she will review options with patient tonight.
[2020-11-18 17:41] VITALS: BP 139/55; PULSE 81; TEMP 99.2
--- NOTE | 2020-11-18 18:29 | NUR ---
Pt recently went down to radiology for xray. Pt refused to get up from wheelchair stating that he couldn't. Jared from radiology called and stated that he was bringing him back up. Informed him I would be down as the patient is a stand by assist once he is up and that I would assist. Pt did well getting from the wheelchair to xray table. Xrays taken and pt brought back up to the floor
[2020-11-18 20:00] VITALS: BP 126/51; PULSE 76; TEMP 98.4
--- NOTE | 2020-11-18 20:40 | NUR ---
Pt in bed. Reports muscle spasms. Medicated with HS meds including Tramadol and Valium. Has SL to right AC, flushes well. Noted less edema to left knee, has ice packs to both knees. Is alert and oriented x4.
--- NOTE | 2020-11-18 23:23 | NUR ---
Medicated with [place] 7.5mg 1 tab for continued leg pain and spasms.
--- NOTE | 2020-11-18 23:50 | NUR ---
Assisted with positioning in bed. Unable to lift right leg on own into bed. Placed on left side per his request.
[2020-11-19 01:26] VITALS: BP 127/50; PULSE 65; TEMP 97.7
[2020-11-19 04:43] VITALS: BP 125/49; PULSE 62; TEMP 98.4
[2020-11-19 07:00] VITALS: BP 131/61; PULSE 61; TEMP 98.6
[2020-11-19 07:35] LABS: BASO % 0.3 % (0.0-2.0); EOS # 0.2 (0.0-0.7); EOS % 2.3 % (0-4.0); GRAN # 5.3 (1.4-6.5); GRAN % 67.6 % (42.2-75.2); HEMATOCRIT 28.1 % (42.0-52.0); HEMOGLOBIN 9.4 g/dl (13.5-18.0); LYMPH # 1.4 (1.2-3.4); LYMPH % 17.4 % (20.0-51.0); MEAN CELL VOLUME 88 fl (80.0-100.0); MEAN CORPUSCULAR HEMOGLOBIN 29 pg (27.0-31.0); MEAN CORPUSCULAR HGB CONC 34 g/dl (33.0-37.0); MEAN PLATELET VOLUME 9.6 fl (7.4-10.4); MONO # 0.9 (0.1-0.6); PLATELET COUNT 320 K/mm3 (130-400); REDCELL DISTRIBUTION WIDTH-CV 13.8 % (11.5-14.5)
[2020-11-19 07:48] LABS: ALBUMIN 2.6 gm/dL (3.5-5.0); BILIRUBIN,TOTAL 1.3 mg/dL (0.0-1.0); CALCIUM 8.5 mg/dL (8.4-10.2); CREATININE, serum 0.64 (0.66-1.25); POTASSIUM 3.1 mmol/L (3.4-5.0); TOTAL PROTEIN 5.1 gm/dL (6.4-8.2)
--- NOTE | 2020-11-19 08:10 | NUR ---
Pt doing well this morning. He is resting in bed and eating breakfast. Pain complaints in his right hip/thigh, he states the same that it has been, medication given. Dr Guzman has been in to see patient, MRI this afternoon. Lung sounds clear, bases diminished bilaterally, heart rate irregular at this time. Del[facility] student working with patient. No other needs, will continue to monitor
--- NOTE | 2020-11-19 10:08 | NUR ---
Follow-up visit; Patient thanked for asking about him. He remains in a great deal of pain. has Isiah in her prayers.
[2020-11-19 11:00] VITALS: BP 113/58; PULSE 73; TEMP 97.8
--- NOTE | 2020-11-19 12:40 | NUR ---
Pt sitting up in the chair at this time. He has been up with PT and OT today. He did take a shower as well. States that pain is the same, but he does appear to be filling better. He is doing better as far as eating. Awaiting MRI
--- NOTE | 2020-11-19 13:45 | NUR ---
Pt continues to sit up in the chair. Awaiting MRI at this time
--- NOTE | 2020-11-19 14:26 | NUR ---
Precision Instrument Maker faxed clinical updates to Ramya at [facility]. Ana at [facility] left SW a message and declined referral. Carolyn, IPR Director continues to screen patient who will have MRI today. SW will continue to follow.
[2020-11-19 15:18] VITALS: BP 100/46; PULSE 71; TEMP 98.9
--- NOTE | 2020-11-19 16:29 | NUR ---
Pt reports overall feeling okay right now. Dr Guzman did call, I then discussed the importance of having the MRI done, but that it will be tomorrow. No needs at this time, will continue to monitor
[2020-11-19 20:12] VITALS: BP 124/51; PULSE 72; TEMP 97.6
--- NOTE | 2020-11-19 21:10 | NUR ---
Resting in bed. Assessment completed and charted. Denies pain at this time. Left knee in proper positioning. Denies needs at this time. Call light in reach.
[2020-11-20 00:18] VITALS: BP 124/62; PULSE 63; TEMP 98.4
--- NOTE | 2020-11-20 02:35 | NUR ---
Resting in bed asleep. Call light in reach.
[2020-11-20 04:21] VITALS: BP 135/60; PULSE 64; TEMP 98.3
--- NOTE | 2020-11-20 04:37 | NUR ---
Patient woke up with spasms. Given PRN norco at this time.
--- NOTE | 2020-11-20 06:35 | NUR ---
Patient required PRN norco for pain control during night. Otherwise uneventful night. Resting in bed this AM. Call light in reach.
[2020-11-20 07:05] VITALS: BP 130/60; PULSE 63; TEMP 98.2
--- NOTE | 2020-11-20 07:10 | NUR ---
Report given to Aida Garcia RN
--- NOTE | 2020-11-20 07:15 | NUR ---
Shift assessment completed. Pt. laying in bed resting. Apical pulse 61 bpm and irregular. Bowel sounds audible in all quadrants. Urine output of 100 ml in urinal and is clear and dark yellow. Pt. reports "shooting pain" down legs during palpation of pedal peripheral pulses. Pain not rated otherwise.
[2020-11-20 07:36] LABS: MEAN CELL VOLUME 88 fl (80.0-100.0); MEAN CORPUSCULAR HGB CONC 34 g/dl (33.0-37.0); MEAN PLATELET VOLUME 9.1 fl (7.4-10.4); PLATELET COUNT 372 K/mm3 (130-400); RED BLOOD COUNT 3.34 M/mm3 (4.20-5.60); REDCELL DISTRIBUTION WIDTH-CV 14.1 % (11.5-14.5)
[2020-11-20 07:56] LABS: CALCIUM 8.5 mg/dL (8.4-10.2); CREATININE, serum 0.7 (0.66-1.25); POTASSIUM 3.8 mmol/L (3.4-5.0)
[2020-11-20 08:00] LABS: HEMATOCRIT 29.4 % (42.0-52.0); HEMOGLOBIN 9.9 g/dl (13.5-18.0); MEAN CORPUSCULAR HEMOGLOBIN 30 pg (27.0-31.0)
[2020-11-20] MEDS ORDERED: NORCO 325 MG-51 TAB PO (08:51)
[2020-11-20 11:00] VITALS: BP 119/57; PULSE 63; TEMP 98.7
--- NOTE | 2020-11-20 11:20 | NUR ---
Pt doing about the same today. He has pain complaints in his right leg, but once he is up moving, he appears to do better. Dr Guzman in to see patient. Dressing on left knee removed, edges well approximated with zi intact. New aquacel applied. Pt does well with movement on his left knee. MRI this afternoon, medication changes, will continu to monitor
--- NOTE | 2020-11-20 15:00 | NUR ---
Pt off the floor for MRI. He did well transferring to the wheelchair
--- NOTE | 2020-11-20 15:59 | NUR ---
Pt back from MRI. Stated that today went much better than yesterday. Ice pack applied to left knee. Pt denies any needs, call light within reach, will continue to monitor
[2020-11-20 16:00] VITALS: BP 120/52; PULSE 64; TEMP 98.2
--- NOTE | 2020-11-20 18:30 | NUR ---
Assisted pt to the chair, he stated his significant other was going to be coming to visit. Pt did well with stand by assist. No needs at this time, report given
[2020-11-20 21:02] VITALS: BP 128/54; PULSE 65; TEMP 98.4
--- NOTE | 2020-11-20 21:40 | NUR ---
PT IN BED. TAKES HS MEDS AT THIS TIME. HAS SCDS ON BILATERAL LOWER LEGS. RT AND LEFT KNEES AND LEGS EDEMATOUS, VERY SENSITIVE TO TOUCH. DRSG INTACT TO LEFT KNEE. REPORTS MUSCLE SPASMS.
--- NOTE | 2020-11-20 22:39 | NUR ---
MEDICATED WITH VALIUM FOR MUSCLE SPASMS AND NORCO FOR LEFT AND RT KNEE PAIN.
[2020-11-21 00:22] VITALS: BP 124/49; PULSE 58; TEMP 98
[2020-11-21 04:17] VITALS: BP 146/58; PULSE 63; TEMP 98.4
--- NOTE | 2020-11-21 04:37 | NUR ---
MEDICATED WITH TRAMADOL 50MG PO FOR PAIN 7/10 TO BOTH KNEES.
[2020-11-21 06:46] LABS: MEAN CELL VOLUME 90 fl (80.0-100.0); MEAN CORPUSCULAR HGB CONC 32 g/dl (33.0-37.0); PLATELET COUNT 412 K/mm3 (130-400); RED BLOOD COUNT 3.39 M/mm3 (4.20-5.60)
[2020-11-21 06:47] LABS: HEMATOCRIT 30.6 % (42.0-52.0); HEMOGLOBIN 9.8 g/dl (13.5-18.0); MEAN CORPUSCULAR HEMOGLOBIN 29 pg (27.0-31.0)
[2020-11-21 06:59] LABS: CALCIUM 8.8 mg/dL (8.4-10.2); CREATININE, serum 0.77 (0.66-1.25); MAGNESIUM 2.1 mg/dL (1.6-2.3); POTASSIUM 3.8 mmol/L (3.4-5.0)
[2020-11-21 07:44] VITALS: BP 135/57; PULSE 59; TEMP 98.1
--- NOTE | 2020-11-21 08:40 | NUR ---
PATIENT TAKEN DOWN TO RADIOLOGY VIA WHEELCHAIR. WILL WAIT FOR PATIENT ARRIVAL BACK TO ROOM 328.
--- NOTE | 2020-11-21 09:20 | NUR ---
PATIENT ARRIVED BACK TO ROOM 328 FROM RADIOLOGY.
--- NOTE | 2020-11-21 10:33 | NUR ---
Follow-up visit; Isiah thanked Mental Hygiene Consultant for checking on him this week and letting him know she continues to pray for him.
--- NOTE | 2020-11-21 11:05 | NUR ---
PATIENT SHIFT ASSESSMENT COMPLETED. PATIENT GIVEN PRN PAIN PILL PRIOR TO BEING TRANSFERRED TO INPATIENT REHAB. LEFT KNEE DRESSING IS CD&I. POSTITIVE PEDAL PULSES EQUAL BILATERALLY. CAP REFILL <3 SECONDS. CMS INTACT.
--- NOTE | 2020-11-21 11:23 | NUR ---
Patient to be discharged to [facility] today. SW contacted patient's significant other, Maurisio to provide update.
--- NOTE | 2020-11-21 11:39 | NUR ---
Scow Captain was contacted by Gem at [facility] who advised they were seeing patient shortly before he was admitted. SW advised patient would be discharged to [facility].
[2020-11-21 12:25] VITALS: BP 135/57; PULSE 59; TEMP 98.1
[2020-11-21 12:41] VITALS: BP 108/62; PULSE 66; TEMP 98.6
--- NOTE | 2020-11-21 12:53 | NUR ---
RIGHT AC INT DISCONTINUED PER PENDING TRANSFER TO INPATIENT REHAB. PATIENT REPORT GIVEN TO JOHN LIEBERMAN. PATIENT TRANSFERRED TO ROOM 334.
[2020-11-21] MEDS ORDERED: XARELTO10 MG PO (13:21)
[2021-06-10] MEDS ORDERED: ONE-A-DAY ESSE1 EACH PO (06:10)
[2021-06-10] MEDS ORDERED: ROBAXIN 50500 MG/TAB PO (19:26)
== END 2020-11-21 12:53 ==
LOC: COL.ER 02:06 → JCC 03:00
PROVIDERS: Emergency Medicine; Physician Assistant; Student in an Organized Health Care Education/Training Program; ADMIT Family Medicine
DX: M17.11 Unilateral primary osteoarthritis, right knee (principal); M25.551 Pain in right hip; M79.604 Pain in right leg; I25.2 Old myocardial infarction; I25.10 Atherosclerotic heart disease of native coronary artery without angina pectoris; I97.89 Other postprocedural complications and disorders of the circulatory system, not elsewhere classified; M10.9 Gout, unspecified; I48.91 Unspecified atrial fibrillation; E66.9 Obesity, unspecified; E78.5 Hyperlipidemia, unspecified; I50.32 Chronic diastolic (congestive) heart failure; I11.0 Hypertensive heart disease with heart failure; R53.81 Other malaise; R44.3 Hallucinations, unspecified; K59.00 Constipation, unspecified; Z79.899 Other long term (current) drug therapy; Z96.652 Presence of left artificial knee joint
CPT/HCPCS: 99232-AI; G0378; J1650; J2270; J3301; J3475; Q9967

== ENCOUNTER 2020-11-21 13:00 | Inpatient (IN) | payer MEDICARE, BC ==
[~2020-11-21] VITALS: Ht 172.7 cm; Wt 116.3 kg
[2020-11-21 13:00] VITALS: BP 105/68; PULSE 52; TEMP 97.9
[~2020-11-21 13:00] MED LIST changes: +FOLIC ACID 40400 MCG PO; +NORCO 325 MG-51 TAB PO; +ONE DAILY MULTI1 TA1 PO; +VITAMINC1000TA PO; +XARELTO10 MG PO
[2020-11-21] MEDS ORDERED: XARELTO10 MG PO (13:21)
[2020-11-21 19:36] VITALS: BP 127/58; PULSE 71; TEMP 97.7
--- NOTE | 2020-11-21 19:45 | NUR ---
PT LAYING IN BED MOANING. HAVING BILAT LE PAIN LEVEL 10. GAVE NORCO 5MG 2 TABS. ICE PACK APPLIED TO BILAT LEG. AQUACELL CDI TO LT KNEE. +2 BILAT LE EDEMA. ENC ELEVATED FOOT OF BED. SCD'S ON BILAT. HEELS FLOATED. CALL LIGTH IN REACH. BED ALARM SET.
--- NOTE | 2020-11-21 19:56 | NUR ---
Patient arrived to room 334 this afternoon. This nurse received report from JOHN Mcneil with the following information: Mikhail is a 70 YOM that is on an AHA diet, one person assist with ambulation using walker and gait belt. Patient moves very slow. Continent of B/B, but wears briefs for some occasional episodes. He takes pills whole with water; no skin issues; has a left knee aquacel in place; has a Hx of A-Fib, HTN, DIPAK, CAD, Kidney stones. He has No known drug allergies. Not sure of last BM. He is a full code and A&OX4. He takes [place] and Tramadol to manage pain. Was on potassium replacement protocol on surgical unit. Patient will be receiving an injection on Wednesday see orders to hold Xerelto until after this injection. Patient will be on Lovenox today and tomorrow and then it will be on hold until after the injection. See orders. Patient currently resting in bed, call light in reach and bed alarm set. Reported off to night nurse.
--- NOTE | 2020-11-21 21:02 | NUR ---
Patient arrived with the following items: hairbrush, jet dyeing machine tender for tablet, 2 ts shirts, 1 pair of shoes, 1 pill container with tramadol in it that was sent to pharmacy to store., 1 watch, 1 pair of glasses.
[2020-11-22 05:25] VITALS: BP 140/57; PULSE 55; TEMP 98.5
--- NOTE | 2020-11-22 07:19 | NUR ---
PT RESTING ON EOB AT SHIFT REPORT. LAST GIVEN PAIN MEDICATIONS AT 0420.
--- NOTE | 2020-11-22 15:17 | NUR ---
Quality Intern completed intake with patient as he is new to [facility]. Patient lives in [place] with his significant other, Maurisio Lama (ph#[phone]) [address] Dr. Melendez for primary care. Patient obtains medications from [facility] with no difficulties. Patient has a walker, hospital bed, and commode at home. Patient was renting a wheelchair from [place] [address] [employer], but has returned it. Patient states his DPOA-HC is Maurisio. SW will continue to follow for discharge needs.
[2020-11-22 16:37] VITALS: BP 131/51; PULSE 63; TEMP 98.2
--- NOTE | 2020-11-22 19:49 | NUR ---
PT RECEIEVED PRN NORCO ONCE THIS SHIFT AND APAP TWICE FOR HIP AND KNEE PAIN. UTILIZES ICE THERAPY AND ELEVATES LEGS ON PILLOWS WELL LEFT HEEL FLOATING.
[2020-11-23 04:23] VITALS: BP 138/55; PULSE 62; TEMP 98.4
--- NOTE | 2020-11-23 07:49 | NUR ---
PT ASSIST TO BED. BED ALARM ON. CALL LIGHT IN REACH. NORCO X 2 TABS GIVEN AT HS AND REPEATED IN AM FOR PAIN RATED 10. DDDDDDDDDDDDDDDDDDDDDDDDDDDDDDDDDDDDDDDDDDDDDDDDDDDDDDDDDDDDDDDDDDDDDDDDDDDDDD DDDDDDDDDDDDDDDDDDDDDDDDDDDDDDDDDDDDDDDDDDDDDDDDDDDDDDDDDDDDDDDDDDDD STATES HIS LEFT KNEE IS HURTING 03/22. USES URINAL DURING THE NIGHT. AQUACELL INTACT ON LEFT KNEE. BILAT LE WITH AT LEAST 3+ EDEMA. ICE APPLIED TO LEFT KNEE. PT REPORTS IT DOES FEEL BETTER. C/O LEFT HEEL HURTING. LLE UP ON 2 PILLOWS TO KEEP HEEL OFF BED. BED ALARM [employer] ARCHITECT LIGHT IN REACH.
--- NOTE | 2020-11-23 08:20 | NUR ---
Patient resting in recliner, call light in reach and alarm set. Patient denies questions at this time. Will continue to monitor.
--- NOTE | 2020-11-23 10:57 | NUR ---
Patient went for his epidural this morning and has since returned and is working with PT at this time. Patient was given prn [place] prior to his epidural. Will continue to monitor.
[2020-11-23 15:17] VITALS: BP 122/64; PULSE 64; TEMP 98.9
--- NOTE | 2020-11-23 15:46 | NUR ---
Patient is a one CGA with ambulating to the bathroom, required cues. Patient attended all his therapies today and bilateral leg pain has been managed with prn pain meds. Patient denies any questions at this time.
--- NOTE | 2020-11-24 05:20 | NUR ---
PT IN BED. NO N/V. NORCO FOR PAIN.
[2020-11-24 05:41] VITALS: BP 156/90; PULSE 72; TEMP 98.1
--- NOTE | 2020-11-24 11:54 | NUR ---
Changed linens on patient bed and recliner. Patient is a one assist with ambulating to the bathroom using a walker. Patient given prn [place] to help with left knee incision pain and uses ice to knee when in bed. Patient currently resting in recliner, call light in reach and alarm set. Will continue to monitor.
[2020-11-24 14:36] VITALS: BP 119/55; PULSE 64; TEMP 98.5
--- NOTE | 2020-11-24 16:49 | NUR ---
Patient tolerated diet well this shift. Aquacell to left leg incision is CDI with no drainage observed. Patient was a mod assist with using the walker to the bathroom. Denied questions at this time. Currently resting in recliner, call light in reach and chair alarm set. Will continue to monitor.
--- NOTE | 2020-11-24 19:18 | NUR ---
RECEIVED CHANGE OF SHIFT REPORT FROM DAY SHIFT NURSE. UP IN CHAIR, SLEEPING, DOES NOT WAKE WHEN ROOM ENTERED BY STAFF DURING REPORT.
--- NOTE | 2020-11-24 19:50 | NUR ---
PATIENT AWAKE, UP IN CHAIR ATTEMPTING URINATE IN URINAL
--- NOTE | 2020-11-24 20:55 | NUR ---
AMBULATES SLOW WITH HUNCHED OVER POSTURING OF BACK AND BOTH KNEES PARTIALLY FLEXED, PATIENT NOT STANDING UP STRAIGHT WITH WALKING. DENIES CHEST PAIN/SOA/NAUSEA AT THIS TIME. REQUESTING TO HAVE NEXT PAIN MEDS GIVEN TO HIM AFTER 2300, THAT HE IS OKAY TO BE WAKEN FOR NEXT AVAILABLE PAIN MED FOR COMFORT MAINTENENCE. REPORTS STILL HAS PAIN TO LEFT KNEE CONSTANTLY. SEE eMAR FOR PAIN MED GIVEN. BED ALARM ON WHEN IN BED.
[2020-11-25 05:46] VITALS: BP 120/57; PULSE 76; TEMP 98.6
--- NOTE | 2020-11-25 06:23 | NUR ---
REQUESTED AND GIVEN NORCO FOR COMPLAINTS OF 5/10 PAIN TO LEFT KNEE WHILE SITTING AFTER AMB TO BATHROOM THEN SITTING UP IN CHAIR AT THIS TIME WITH CHAIR ALARM ON.
--- NOTE | 2020-11-25 07:02 | NUR ---
PT RESTING IN RECLINER WITH LIGHTS ON AT BEDSIDE SHIFT REPORT. RECEIVED PRN NORCO PRIOR TO THIS SHIFT. THIS NURSE WILL CALL TO RESCHEDULE APPT WITH DR. CAMEJO WHILE PT IS STILL HERE.
--- NOTE | 2020-11-25 07:04 | NUR ---
CHANGE OF SHIFT REPORT GIVEN TO DAY SHIFT NURSE, JOSE LOPEZ.
--- NOTE | 2020-11-25 13:10 | NUR ---
PT ATTEMPTED TO HAVE BM WITH OT FOR 30 MINUTES. WAS ABLE TO GET SMALL AMT OF HARD BM OUT. WHEN THIS NURSE ASSISTED WITH DIGTIAL REMOVAL HE PASSED A LARGE HARD STOOL. RECTUM INFLAMMED FROM STRAIN AND SOME MILD BLEEDING NOTED. WILL CONTINUE TO MONITOR AND ENCOURAGE PT NOT TO STRAIN. ORDER FOR PREPEARION H ORDERED.
--- NOTE | 2020-11-25 13:44 | NUR ---
Admission QIM scores were reviewed by the team. Code of 4 chosen for oral hygiene was determined by team discussion to be the most usual performance before interventions for this patient during the assessment period. Code of 3 chosen for toilet hygiene was determined by team discussion to be the most usual performance for this patient during the assessment period. Code of 3 chosen for toileting transfers was determined by team discussion to be the most usual performance for this patient during the assessment period. Code of 2 chosen for putting on/taking off footwear was determined by team discussion to be the most usual performance for this patient during the assessment period. Code of 3 chosen for rolling left to right was determined by team discussion to be the most usual performance for this patient during the assessment period. Code of 3 chosen for sit to lying was determined by team discussion to be the most usual performance for this patient during the assessment period. Code of 3 chosen for lying to sitting on side of bed was determined by team discussion to be the most usual performance for this patient during the assessment period. Code of 4 for sit to stand was determined by team discussion to be the most usual performance for this patient during the assessment period. Code of 4 for chair/bed to chair transfers was determined by team discussion to be the most usual performance for this patient during the assessment period. Code of 4 chosen for walk 10 feet was determined by team discussion to be the most usual performance for this patient during the assessment period.--PD Loretta
--- NOTE | 2020-11-25 14:23 | NUR ---
SW met with the patient to introduce oneself and to follow up after the weekend. The patient states that he is doing good. He states that he had a procedure on his back on Wednesday and then got a lot of rest afterwards and on Wednesday. He had no concerns for SW at this time. SW to continue to follow.
[2020-11-25 15:42] VITALS: BP 110/62; PULSE 60; TEMP 98.4
--- NOTE | 2020-11-25 17:31 | NUR ---
PT HAS RECEIEVED PRN APAP ONCE THIS SHIFT HAS DENIED MUCH PAIN IN KNEE OR HIP. CONTINUING TO ENCOURAGE PT TO FLOAT LEFT HEEL. PT DOES NOT REMEMBER THIS ON HIS OWN, HEEL IS RED AND BLANCHABLE, WITH HEEL CUSHION IN PLACE. PT DENIES FEELING NEED TO HAVE MORE BM. PREPERATION H WILL BE APPLIED NEXT TIME HE USES TOILET.
--- NOTE | 2020-11-25 22:18 | NUR ---
Patient resting in bed. Some complaints of pain to left lower extremity. Aquacell clean, dry, and intact. Pain pill administered before bed. Patient denies needs at this time. Call light in reach.
[2020-11-26 04:36] VITALS: BP 121/54; PULSE 79; TEMP 98
--- NOTE | 2020-11-26 08:00 | NUR ---
PATIENT IS A&O. VSS. C/O PAIN IN LEFT KNEE AT 4-5 ON PAIN SCALE AND REQUESTING SOMETHING FOR PAIN BEFORE AM THERAPY. GAVE PRN NORCO, TWO TABS. PATIENT SITTING UP IN BEDSIDE CHAIR WITH BREAKFAST TRAY AT BEDSIDE. PATIENT DENIES C/O N/V BUT REPORTS DECREASED APPETITE. NO IV SITE. BS ORDERED PRN. NOTED +3 PITTING EDEMA TO BLE. PATIENT REPORTS HIS BLE EDEMA IS CHRONIC. LEFT HEEL SLIGHTLY RED, FLOATING HEEL WHEN IN BED. PT/OT/ST. ORTHO TO SEE PATIENT TODAY TO REMOVE YINA TO LTK INCISION. SCD'S CURRENTLY OFF. HEAD TO TOE ASSESSMENT COMPLETE. STUDENT NURSE GAVE AM MEDS, SEE CHARTING. NO OTHER NEEDS AT THIS TIME. CALL LIGHT IN REACH.
--- NOTE | 2020-11-26 09:59 | NUR ---
follow-up visit; Patient thanked for looking in on him and states that he hopes to hear something today from his . wished him a good day.
--- NOTE | 2020-11-26 14:09 | NUR ---
BECKY attempted to contact the patient's life partner, Maurisio, to set up a patient/family meeting. The phone number would not ring. BECKY then met with the patient to discuss getting a patient/family meeting set up for tomorrow. The patient states that their phone has been acting up and the phone repairman was suppose to be coming this morning to fix it. The patient was able to get Mark on his room phone. BECKY spoke to Maurisio and a patient/family meeting was scheduled for tomorrow at 1315. BECKY notified IPR Director.
--- NOTE | 2020-11-26 19:30 | NUR ---
RECEIVED CHANGE OF SHIFT REPORT FROM DAY SHIFT NURSE. PATIENT UP IN CHAIR WITH NO REPORTED NEEDS OR CONCERNS REPORTED.
[2020-11-26 19:51] VITALS: BP 118/48; PULSE 57; TEMP 98.1
--- NOTE | 2020-11-26 20:00 | NUR ---
DENIES CHEST PAIN/SOA/NAUSEA AT THIS TIME. DENIES NUMBNESS/TINGLING TO EXTREMITIES. PATIENT TOLERATED STAPLE REMOVED FROM LEFT KNEE INCISION PER DR ORDER AFTER INCISION CLEANED WITH CHLORHEXIDINE/STERILE NS, AIR STRIP APPLIED WITH NO PROBLEMS.
--- NOTE | 2020-11-27 02:15 | NUR ---
PATIENT PUT TO BED AFTER SITTING UP INCHAIR EARLIER, OBSERVED PATIENT LEANING FORWARD WHILE SLEEPING UP IN CHAIR. PATIENT PUT TO BED BUT UNABLE TO REST, "I CAN'T GET COMFORTABLE". PATIENT BACK UP IN CHAIR, CHAIR ALARM ON. REMINDED PATIENT NEXT PAIN MEDS CAN BE GIVEN AFTER 0300.
[2020-11-27 05:25] VITALS: BP 142/54; PULSE 50; TEMP 98.1
--- NOTE | 2020-11-27 07:14 | NUR ---
CHANGE OF SHIFT REPORT GIVEN TO DAY SHIFT NURSE, LUISANA LOPEZ.
--- NOTE | 2020-11-27 07:27 | NUR ---
Patient resting in recliner, call light in reach and alarm set. Patient is awaiting therapy at this time.
--- NOTE | 2020-11-27 13:44 | NUR ---
BECKY attended the patient/family meeting. The patient's life partner, Maurisio, was at bedside. Also present was IPR Director, PT, and OT. IPR Director started by explaining the purpose of the meeting. PT/OT discussed the patient's progress so far. IPR Director informed the patient and Maurisio about how a tentative d/c date has been set for this Wednesday with outpatient PT/OT. Maurisio reports that she is busy Wednesday and that a Wednesday discharge would work better. Discharge date has been set for Wednesday, 12/01. The team answered all questions. BECKY then followed up with Maurisio and presented and reviewed the IPR Team Conference Note with her. The patient and Maurisio would like to consider home health vs outpatient therapy and then if outpatient therapy, where they would like to get the outpatient therapy out. They are considering [facility] vs [facility]. BECKY provided Maurisio with BECKY's phone number. SW to continue to follow.
--- NOTE | 2020-11-27 14:58 | NUR ---
Patient attended all therapies this shift. He has his compression socks on at this time. He has no skin issues. Patient will be discharging this coming Wednesday per therapy. Pain is being managed with prn pain meds. Will continue to monitor.
[2020-11-27 16:11] VITALS: BP 128/57; PULSE 56; TEMP 98.5
--- NOTE | 2020-11-27 18:55 | NUR ---
RECEIVED CHANGE OF SHIFT REPORT FROM DAY SHIFT NURSE. PATIENT UP IN CHAIR DURING REPORT. DENIES ANY NEEDS AT THIS TIME.
--- NOTE | 2020-11-27 20:51 | NUR ---
PATIENT REPORTS PASSED SMALL AMOUNT OF STOOL DURING OT TREATMENT. AFTER MUCH DISCUSSION, AGREED TO TAKE SENOKOT AND COLACE AFTER REFUSING MIRALAX AND DULCOLAX SUPP AT THIS TIME. REMINDED PATIENT TO HAVE L KNEE LAY STRAIGHT WHEN USING PILLOW AFTER PATIENT INSISTED ON HAVING LLE UP ON X2 PILLOW WITH L KNEE SLIGHT FLEXED. DENIES CHEST PAIN/SOA/NAUSEA AT THIS TIME.
[2020-11-28 05:36] VITALS: BP 135/61; PULSE 55; TEMP 98
--- NOTE | 2020-11-28 07:12 | NUR ---
CHANGE OF SHIFT REPORT GIVEN TO DAY SHIFT NURSE, LUISANA LOPEZ.
--- NOTE | 2020-11-28 07:29 | NUR ---
Patient resting in chair, call light in reach and independent in his room. Denies questions at this time.
--- NOTE | 2020-11-28 10:35 | NUR ---
Patient just left for therapy at this time. Following this nurse assisting patient with the removal of a stool impaction. Patient was productive in having a large hard brown bowel movement. Will continue to monitor.
--- NOTE | 2020-11-28 14:11 | NUR ---
BECKY met with the patient and had his life partner, Maurisio, on speaker phone to follow up on preference for therapy. The patient prefers outpatient therapy at [facility]. BECKY contacted Katelynn at [facility] to schedule the appointments. Katelynn reports that they put an order in for the therapy and then they will call the patient to set up appointments. She states that BECKY cannot schedule the appointments. BECKY to update the patient, Maurisio and JOHN.
[2020-11-28 18:35] VITALS: BP 110/41; PULSE 58; TEMP 98.7
--- NOTE | 2020-11-28 19:57 | NUR ---
Patient refused his lunch this afternoon due to not being hungry. [place] food is given to close together. He did eat supper. Patient continues to be Independent in room with his walker. Patient was continent of urine and bowel and does pull pants up and down and wipes self independently. Patient's follow up appointments have been made for Dr. Guzman and his PCP. Patient attended all his therapies today and did not request any strong meds this shift. Patient currently resting in recliner, call light in reach and independent in room. Reported off to night nurse.
--- NOTE | 2020-11-28 20:00 | NUR ---
PT SITTING IN RECLINER WITH FEET ELEVATED. C/O RT KNEE DISCOMFORT. SEE MAR FOR TYLENOL GIVEN. DECLINED ICE PACK. MOD I IN ROOM. ENC PT TO CALL FOR ASSIST IF NEEDED. BILAT LE VERY SWOLLEN AND TIGHT. PT WEARS OWN THIGH HI ALEJANDRO HOSE. CALL LIGHT IN REACH.
--- NOTE | 2020-11-29 04:13 | NUR ---
PT SLEPPING IN RECLINER WITH FEET ELEVATED. NO DISTRESS. USING URINAL AT HS.
[2020-11-29 04:28] VITALS: BP 128/54; PULSE 51; TEMP 98.2
--- NOTE | 2020-11-29 10:26 | NUR ---
Initial visit; Patient thanked Customs Manager for checking on him every day and keeping him in Customs Manager's prayers.
--- NOTE | 2020-11-29 14:29 | NUR ---
BECKY contacted [facility] to inquire if they would need anything from us to be able to schedule the outpatient therapy. The campus receptionist reports that they did get the order through for PT and that SW could go ahead and schedule an appointment today. An appointment for PT was scheduled on 12/02 at 1440. The campus receptionist then informed SW that they only have PT, no OT. BECKY met with the patient to update. The patient would like to get the PT/OT at the same place. BECKY informed him of the other therapy centers. The patient chose [facility] on [address]. BECKY contacted and secured the patient an OT appointment on 12/03 at 1445. With the patient and Maurisio's schedule, the campus receptionist reports that they can schedule a PT appointment with them, when they come for the OT appointment. BECKY updated the patient and Maurisio. They were agreeable to the above. BECKY provided the patient's RN with the new appointment. BECKY attempted to contact [facility] back to cancel his PT appointment. [facility] closed at 1300 today. SW to contact [facility] on Wednesday. The patient is to discharge back home with his life partner on Wednesday, 12/01, with outpatient PT/OT at [facility] on [address]. BECKY will need to fax the patient's d/c orders to [facility] at [phone]. BECKY presented and read the IM form out to the patient. The patient verbalized understanding and signed the form. BECKY provided him with a copy.
--- NOTE | 2020-11-29 15:55 | NUR ---
Courtney, at [facility], contacted BECKY and reports that they just had a cancellation on Wednesday and would be able to schedule the patient for PT on that day, 12/03, at 1545, right after his OT appointment. BECKY contacted and informed the patient's life partner, Maurisio, of this. Maurisio was agreeable to the appointment. BECKY informed the patient's RN of the appointment.
[2020-11-29 17:52] VITALS: BP 135/54; PULSE 53; TEMP 98.4
--- NOTE | 2020-11-29 19:48 | NUR ---
NO COMPLAINTS TODAY. NEW S2 PRESSURE INJURY NOTED TO LEFT HEEL, SILVER AG AND MEPILEX DRESSING PLACED. ENCOURAGED PT TO CONTINUE FLOATING HEEL MUCH POSSIBLE.
--- NOTE | 2020-11-29 20:00 | NUR ---
MORBIDLY OBESE PT SITTING IN RECLINER. FALLING ASLEEP LEANING SL FORWARD TO THE LEFT. BLE EDEMA +3. ENC TO KEEP FEET ELEVATED AND HEELS FLOATED ON PILLOWS. PT MOD I IN ROOM WITH WALKER. CALL LIGHT IN REACH.
[2020-11-30 05:37] VITALS: BP 130/62; PULSE 53; TEMP 98.8
[2020-11-30 16:55] VITALS: BP 125/56; PULSE 53; TEMP 98
--- NOTE | 2020-11-30 18:53 | NUR ---
PATIENT INDEPENDENT IN THE ROOM THROUGHOUT THE DAY. PATIENT DENIED PAIN. PATIENT HAD UNEVENTFUL SHIFT. REPORT GIVEN TO JOHN BARNEY.
--- NOTE | 2020-11-30 19:00 | NUR ---
PT WANTED DR LEWIS'S PHONE NU,MIRI TO CALL TO REMIND HIM HE NEEDED TO BE HERE IN THE AM TO DISCHAGE. VERY WORRIED HE WILL FORGET TO COME IN. PT ANXIOUS ABOUT [facility] SOON POSSIBLE IN AM. REASSUSRED PT STAFF WOULD EXPEDITE HIS DISCHARGE SOON DR LEWIS WROTE THE ORDERS. WANTS STAFF TO PREPROCESS ALL PAPER WORK FOR DISCHARGE. ENC PT TO NOT WORRY ABOUT THE DISCHARGE. MOD I IN ROOM. ENC ELEVATION OF FEET/HEELS. LT HEEL DRSG AND HEEL PROTECTOR IN PLACE. CALL LIGHT IN REACH.
[2020-12-01 05:40] VITALS: BP 114/53; PULSE 50; TEMP 98.7
[2020-12-01] MEDS ORDERED: TYLENOL 325MG325 MG PO (08:59)
[2020-12-01] MEDS ORDERED: NORCO 325 MG-51 TAB PO (08:59)
[2020-12-01] MEDS ORDERED: HEMORRHOIDAL RC (08:59)
--- NOTE | 2020-12-01 12:29 | NUR ---
PATIENT SHIFT ASSESSMENT COMPLETE. LEFT HEEL DRESSING REMOVED AND REPLACED WITH MEPLEX DRESSING. ALEJANDRO HOSE TO BLE. PATIENT DENYING PAIN AT THIS TIME. DISCHARGE INSTRUCTIONS REVIEWED WITH PATIENT AND . QUESTIONS SOUGHT AND ANSWERED. PATIENT PERSONAL BELONGINGS GATHERED. PATIENT TAKEN TO PERSONAL VEHICLE VIA WHEELCHAIR. PATIENT DISCHARGED.
--- NOTE | 2020-12-02 10:47 | NUR ---
BECKY faxed the patient's d/c orders to [facility]. BECKY contacted [facility] and canceled the patient's PT appointment there. No additional needs at this time.
[2021-06-10] MEDS ORDERED: ONE-A-DAY ESSE1 EACH PO (06:10)
[2021-06-10] MEDS ORDERED: ROBAXIN 50500 MG/TAB PO (19:26)
== END 2020-12-01 12:29 | disposition home or self-care (01) | DRG 948 ==
PROVIDERS: Orthopaedic Surgery; ADMIT Internal Medicine
PROC: 3E0R3BZ Introduction of Anesthetic Agent into Spinal Canal, Percutaneous Approach (ICD-10-PCS; 2020-11-23)
PROC: 3E0R33Z Introduction of Anti-inflammatory into Spinal Canal, Percutaneous Approach (ICD-10-PCS; principal; 2020-11-23 14:00)
DX: R53.81 Other malaise (principal); I50.32 Chronic diastolic (congestive) heart failure; I48.91 Unspecified atrial fibrillation; M48.061 Spinal stenosis, lumbar region without neurogenic claudication; M70.71 Other bursitis of hip, right hip; E87.6 Hypokalemia; M48.00 Spinal stenosis, site unspecified; M76.10 Psoas tendinitis, unspecified hip; I11.0 Hypertensive heart disease with heart failure; I25.10 Atherosclerotic heart disease of native coronary artery without angina pectoris; M10.9 Gout, unspecified; M19.90 Unspecified osteoarthritis, unspecified site; I25.2 Old myocardial infarction; E66.9 Obesity, unspecified; E78.5 Hyperlipidemia, unspecified; K59.00 Constipation, unspecified; Z79.891 Long term (current) use of opiate analgesic; Z96.652 Presence of left artificial knee joint; Z91.81 History of falling
CPT/HCPCS: 99222-AI; 99231-AI; 99232-AI; 99239; G0378; J1100; J1650; J3301; Q9967

== ENCOUNTER 2021-02-08 18:32 | Observation (INO) | payer MEDICARE, BC ==
[~2021-02-08] VITALS: Ht 172.7 cm; Wt 115.9 kg
[~2021-02-08 18:32] MED LIST changes: +HEMORRHOIDAL RC; +TYLENOL 325MG325 MG PO
[2021-02-08 20:27] LABS: BASO % 0.4 % (0.0-2.0); EOS # 0.1 (0.0-0.7); GRAN # 8.6 (1.4-6.5); GRAN % 80.3 % (42.2-75.2); HEMATOCRIT 40.7 % (42.0-52.0); HEMOGLOBIN 13.4 g/dl (13.5-18.0); LYMPH # 1.2 (1.2-3.4); LYMPH % 10.8 % (20.0-51.0); MEAN CELL VOLUME 91 fl (80.0-100.0); MEAN CORPUSCULAR HEMOGLOBIN 30 pg (27.0-31.0); MEAN CORPUSCULAR HGB CONC 33 g/dl (33.0-37.0); MEAN PLATELET VOLUME 9.5 fl (7.4-10.4); MONO # 0.8 (0.1-0.6); MONO % 7.1 % (1.7-9.3); PLATELET COUNT 267 K/mm3 (130-400); RED BLOOD COUNT 4.47 M/mm3 (4.20-5.60); REDCELL DISTRIBUTION WIDTH-CV 14.9 % (11.5-14.5)
[2021-02-08 20:39] LABS: CREATININE, serum 0.69 (0.66-1.25)
[2021-02-08 20:40] LABS: ALBUMIN 3.7 gm/dL (3.5-5.0); MAGNESIUM 1.7 mg/dL (1.6-2.3); POTASSIUM 3.8 mmol/L (3.4-5.0); TOTAL PROTEIN 6.5 gm/dL (6.4-8.2)
[2021-02-08] MEDS ORDERED: LIPITOR 40MG TA40 MG PO (21:52)
[2021-02-08] MEDS ORDERED: VITAMIN C500 MG PO (21:52)
[2021-02-08] MEDS ORDERED: FOLIC ACID 40400 MCG PO (21:53)
[2021-02-08] MEDS ORDERED: BETAPACE 80MG80 MG PO (21:53)
[2021-02-08] MEDS ORDERED: IRON TABLETS325 MG PO (21:54)
[2021-02-08] MEDS ORDERED: ASPIRIN 81M81 MG/TA2 PO (21:54)
[2021-02-08] MEDS ORDERED: ULTRAM 50MG TAB50 MG PO (21:55)
[2021-02-08] MEDS ORDERED: LASIX 40MG TABL40 MG PO (21:56)
[2021-02-08] MEDS ORDERED: SENEXON-S 50-81 EACH PO (21:56)
[2021-02-08] MEDS ORDERED: LASIX ORAL S10 MG/ML PEG (21:56)
[2021-02-08] MEDS ORDERED: NORCO 325 MG-7.1 TAB PO (21:57)
[2021-02-08] MEDS ORDERED: ZYLOPRIM 100MG100 MG PO (21:57)
--- NOTE | 2021-02-09 01:14 | NUR ---
PT ALERT AND OX3. RATING PAIN 8/10 TO LEFT HIP. INCISION LLUVIA, HEALING C/D/I. DENIES SOA, CHEST PAIN OR DIZZY. STATES 2ND DAY OF PT HE STARTED HAVING SPASMS/PAIN IN LEFT HIP AREA. L AC INT, FLUSHED OKAY. ASSESMENT COMPLETE. POC DISCUSED. PT IS ADMIT UNDER OBSERVATION. CALL LIGHT WI REACH.
[2021-02-09 04:20] VITALS: BP 156/78; PULSE 77; TEMP 98.2
--- NOTE | 2021-02-09 05:35 | NUR ---
PT RESTED PART OF THE NIGHT CONTINUE TO RATE PAIN 6-7/10 AFTER TRAMDOL AND ATIVAN LAST NIGHT. OFFERED NORCO STATES NO HE WILL WAIT UNTIL TRAMDOLS ARE DUE NORCO MAKES HIM A LITTLE "CRAZY". NEEDS MET.
[2021-02-09 07:34] LABS: BASO % 0.4 % (0.0-2.0); EOS % 0.2 % (0-4.0); GRAN # 6.8 (1.4-6.5); GRAN % 79.5 % (42.2-75.2); HEMATOCRIT 40.4 % (42.0-52.0); HEMOGLOBIN 13.1 g/dl (13.5-18.0); MEAN CELL VOLUME 91 fl (80.0-100.0); MEAN CORPUSCULAR HEMOGLOBIN 29 pg (27.0-31.0); MEAN CORPUSCULAR HGB CONC 32 g/dl (33.0-37.0); MEAN PLATELET VOLUME 9.5 fl (7.4-10.4); MONO # 0.6 (0.1-0.6); MONO % 7.5 % (1.7-9.3); PLATELET COUNT 249 K/mm3 (130-400); RED BLOOD COUNT 4.46 M/mm3 (4.20-5.60); REDCELL DISTRIBUTION WIDTH-CV 14.9 % (11.5-14.5)
[2021-02-09 07:45] VITALS: BP 109/54; PULSE 60; TEMP 98
[2021-02-09 07:47] LABS: CALCIUM 8.7 mg/dL (8.4-10.2); CREATININE, serum 0.58 (0.66-1.25)
--- NOTE | 2021-02-09 08:01 | NUR ---
Patient sitting on the edge of bed with walker in front of the patient. Lab was in prior and unable to get a lab draw. A&Ox4. VSS. IV CDI. Reports pain in left hip. Patient standby assist with walker to the recliner. Call light within reach
[2021-02-09] MEDS ORDERED: ROBAXIN 50500 MG/TAB PO (10:36)
--- NOTE | 2021-02-09 11:53 | NUR ---
Discharge paperwork reviewed with the patient. Patient verbalized an understanding to follow doctors orders. IV removed, tip intact gauze and coban applied. Patient trying to get ahold of his for a ride home. No further needs expressed from the patient. Call light within reach
--- NOTE | 2021-02-09 12:45 | NUR ---
Patient transfered by wheelchair by nursing staff to ER entrance. Discharge paperwork and personal belongings with the patient. No further needs expressed from the patient.
[2021-06-10] MEDS ORDERED: ONE-A-DAY ESSE1 EACH PO (06:10)
[2021-06-10] MEDS ORDERED: ROBAXIN 50500 MG/TAB PO (19:26)
== END 2021-02-09 12:45 | disposition home or self-care (01) ==
LOC: COL.ER 18:32 → MEDICAL 22:09
PROVIDERS: Emergency Medicine; Student in an Organized Health Care Education/Training Program; ADMIT Hospitalist
DX: M25.552 Pain in left hip (principal); M25.562 Pain in left knee; M62.838 Other muscle spasm; M19.90 Unspecified osteoarthritis, unspecified site; I25.2 Old myocardial infarction; I97.89 Other postprocedural complications and disorders of the circulatory system, not elsewhere classified; I11.0 Hypertensive heart disease with heart failure; I50.32 Chronic diastolic (congestive) heart failure; K59.00 Constipation, unspecified; E78.5 Hyperlipidemia, unspecified; E66.9 Obesity, unspecified; E87.6 Hypokalemia; M10.9 Gout, unspecified; R60.0 Localized edema; R53.81 Other malaise; Z96.652 Presence of left artificial knee joint; Z96.642 Presence of left artificial hip joint; Z79.899 Other long term (current) drug therapy; Z79.82 Long term (current) use of aspirin; Z79.891 Long term (current) use of opiate analgesic
CPT/HCPCS: 99223-AI; G0378; J1650; J2060; J3010; J7030

== ENCOUNTER → 2021-09-29 | Outpatient (CLI) | payer MEDICARE, BC ==
[~2021-09-29] MED LIST changes: +ASPIRIN 81M81 MG/TA2 PO; +IRON TABLETS325 MG PO; +LASIX ORAL S10 MG/ML PEG; +ONE-A-DAY ESSE1 EACH PO; +ROBAXIN 50500 MG/TAB PO; +ULTRAM 50MG TAB50 MG PO; +VITAMIN C500 MG PO
== END ==
LOC: ZCOL.LAB 16:46
DX: J34.89 Other specified disorders of nose and nasal sinuses (principal)